=== PATIENT | female | born 1975 | race Caucasian/White ===

== ENCOUNTER → 2016-05-28 | Outpatient (CLI) | payer OTHER ==
[2014-08-05 19:30] VITALS: BP 119/85
[~2016-05-28] MED LIST: MULT1CAP15 PO; vitamin b 12; vitamin b 6
--- NOTE | 2016-05-28 17:25 | RAD ---
APPROVED REPORT Patient Location : OUT-PATIENT Indications Lower Extremity Pain : Right Lower Extremity Edema : Right Varicose Veins varicose veins on right, rle pain and swelling Deep System Deep Venous Thrombosis present : No Greater Saphenous Veins (GSV) Significant venous relux noted in the RIGHT GSV at the following levels : Distal Thigh, Superficial F emoral Junction Accessory Veins Right Anterior Accessory Vein : Present : Yes Reflux : Yes Leftt Anterior Accessory Vein : Present : Yes Reflux : No Right Posterior Accessory Vein : Present : No Reflux : No Left Posterior Accessory Vein : Present : No Reflux : No Findings By grayscale images of the bilateral saphenofemoral junctions and limited evaluation of the great sap henous vein was performed. The anterior accessory saphenous vein on the right side was also imaged. The left great saphenous vein measures 6.6 mm in greatest diameter and does not reflux. The right great saphenous vein measures proximal be 9.6 mm in greatest dimension with a reflux time o f approximately 2.7 seconds. The right anterior accessory saphenous vein also has a reflux of 2.7 se conds measuring approximately 6-8 mm. The bilateral lesser saphenous veins did not demonstrate any evidence of reflux. Multiple varicose v eins are noted in the right thigh. Critical Notification Critical Value: No <Conclusion> 1. Positive reflux study in the right greater and accessory saphenous veins.
--- NOTE | 2016-05-28 17:28 | RAD ---
APPROVED REPORT Bilateral Lower Extremity Venous Study for DVT Patient Location: OUT-PATIENT Indications Lower Extremity Pain: Right Lower Extremity Edema: Right Findings Bilateral grayscale images of the deep venous system from the common femoral vein to the below-knee v eins was performed. On grayscale images there is no evidence of thrombus from the common femoral vei n to the popliteal veins bilaterally. There is spontaneous flow noted in the below-knee veins bilate rally. No clear evidence of thrombus or DVT noted. Critical Notification Critical Value: No <Conclusion> Negative DVT study in the bilateral lower extremity deep venous structures.
== END | disposition home or self-care (01) ==
LOC: US 13:11
PROVIDERS: ATTEND Internal Medicine Cardiovascular Disease
DX: I87.2 Venous insufficiency (chronic) (peripheral) (principal); I83.91 Asymptomatic varicose veins of right lower extremity; M79.89 Other specified soft tissue disorders
CPT/HCPCS: 93970

== ENCOUNTER → 2016-07-08 | Outpatient (CLI) | payer OTHER ==
[2014-08-05 19:30] VITALS: BP 119/85
[~2016-07-08] MED LIST changes: +LIDOCAINE 1%/EPI 1:100,000 50 ML, SODIUM BICARBONATE VIAL 5 MEQ in IV NORMAL SALINE 100... SQ ONE
--- NOTE | 2016-07-08 14:01 | CARD ---
APPROVED REPORT Patient StatusOUT-PATIENT Financial Planning Advisor: Olu Slaughter Procedure(s) performed: Endovenous radiofrequency ablation of the right anterior accessory saphenous vein. INDICATION FOR PROCEDURE The indication(s) include : Symptomatic Chronic Venous Insufficiency with Varicose Veins, lower extre mity pain and edema. PROCEDURE NARRATIVE The patient was transferred to the procedure suite and the insufficient saphenous vein was mapped by ultrasound and diagrammed on the underlying skin. The depth and diameter of the vein(s) to be treate d was documented. The varicose tributary veins and suitable access sites were identified and mapped as well. The patient was then positioned supine on the procedure table. The entire limb was sterile ly prepared and the lower extremity and treatment table were sterilely draped. The RF catheter was placed on the sterile field, flushed and wiped down, prepared, and connected by a sterile cable. The patient was placed in reverse-Trendelenburg position and local anesthesia was instilled in the sk in overlying the access site. A skin incision was made overlying the identified and mapped greater s aphenous vein entry site. The vein was punctured through the incision and using ultrasound guidance and the Seldinger technique a guide wire was introduced through the needle which was then exchanged o ethan the guide wire for a 7 F sheath. The guide wire was removed and the sheath was flushed. The RF probe was placed into the vein through the sheath and positioned at a point just distal (about 0.5 to 1 cm) to the entrance point of the superficial epigastric artery using ultrasound guidance. After the RF probe position was verified by the ultrasound, tumescent anesthesia was infiltrated, und er ultrasound guidance, precisely into the perivenuus compartment along the entire length of vein fro m the entry site to the saphenofemoral junction until a "halo" of fluid was noted around the vein. The patient was then placed in Trendelenburg position. After the RF probe position was again confirm ed with ultrasound imaging, moderate external compression was applied over the RF heating element, an d RF energy was applied. The probe was withdrawn sequentially in 3 cm segments of ablation and monit ored to keep the probe temperature at 120 degrees Celsius and the generator output well below its max imum power. Treatment Segments: 14 Total Length: 33 cm. Total Ablation time: 4 minutes 40 secon ds. Repeat ultrasound of the saphenous vein was performed confirming successful treatment. The catheter and sheath were withdrawn and hemostasis established with direct pressure. After assuring hemostasis , the skin incision over the saphenous vein was closed with a bandage and an external compression pablo ssing was applied from the level of the foot to the most proximal level of the thigh.
== END | disposition home or self-care (01) ==
LOC: VNUS 11:57
PROVIDERS: ATTEND Internal Medicine Cardiovascular Disease
DX: I83.811 Varicose veins of right lower extremity with pain (principal)
CPT/HCPCS: 36475; J3490; J7030

== ENCOUNTER → 2016-07-10 | Outpatient (CLI) | payer OTHER ==
[2014-08-05 19:30] VITALS: BP 119/85
[~2016-07-10] MED LIST changes: -LIDOCAINE 1%/EPI 1:100,000 50 ML, SODIUM BICARBONATE VIAL 5 MEQ in IV NORMAL SALINE 100... SQ ONE
== END | disposition home or self-care (01) ==
LOC: US 10:33
PROVIDERS: ATTEND Internal Medicine Cardiovascular Disease
DX: Z98.890 Other specified postprocedural states (principal); M79.604 Pain in right leg
CPT/HCPCS: 93971

== ENCOUNTER → 2017-02-19 | Outpatient (CLI) | payer OTHER ==
[2016-01-04 08:10] VITALS: BP 113/76
[~2017-02-19] MED LIST changes: +ALPR0.5T PO; +MELO15TA23 PO; +OXYC-328 PO; +OXYC30TA PO; +QUET25TA5 PO
[2017-02-19 13:59] LABS: BASO # 0.1 x10^3/uL (0.0-0.2); BASO % 1 % (0-3); BILIRUBIN,URINE NEGATIVE (NEG); EOS % 1 % (0-3); GLUCOSE,URINE NEGATIVE (NEG); HEMATOCRIT 42.9 % (36.0-47.0); HEMOGLOBIN 14.6 g/dL (12.0-15.5); LYMPH # 3.6 x10^3/uL (1.0-4.8); LYMPH % 31 % (24-48); MEAN CORPUSCULAR HEMOGLOBIN 32 pg (25-35); MEAN CORPUSCULAR HGB CONC 34 g/dL (31-37); MEAN CORPUSCULAR VOLUME 94 fL (79-100); MONO % 6 % (0-9); NEUT % 62 % (31-73); NITRITE,URINE NEGATIVE (NEG); PLATELET COUNT 273 x10^3/uL (140-400); PROTEIN,URINE NEGATIVE (NEG-TRACE); RED BLOOD COUNT 4.59 x10^6/uL (3.50-5.40); RED CELL DISTRIBUTION WIDTH 13.9 % (11.5-14.5); UROBILINOGEN,URINE 0.2 mg/dL (0.2 mg/dL); WHITE BLOOD COUNT 11.7 x10^3/uL (4.0-11.0)
[2017-02-19 14:07] LABS: BACTERIA,URINE FEW /HPF (0-FEW); RBC,URINE RARE /HPF (0-2); SQUAMOUS EPITHELIAL CELL,UR FEW /LPF; WBC,URINE 0 /HPF (0-4)
--- NOTE | 2017-02-19 14:07 | RAD ---
Chest, 2 views, 02/19/2017: History: Preop evaluation for hysterectomy Comparison is made to a study from 08/05/2014. The heart size and pulmonary vascularity are normal. No pulmonary infiltrates are seen. There is no evidence of pleural fluid. Mild spurring is present in the spine. IMPRESSION: No acute cardiopulmonary abnormality is detected.
[2017-02-19 14:19] LABS: ALBUMIN 3.8 g/dL (3.4-5.0); ALBUMIN/GLOBULIN RATIO 1.1 (1.0-1.7); CALCIUM 9.7 mg/dL (8.5-10.1); CREATININE 0.8 mg/dL (0.6-1.0); GFR 78.3; POTASSIUM 3.7 mmol/L (3.5-5.1); TOTAL BILIRUBIN 0.2 mg/dL (0.2-1.0); TOTAL PROTEIN 7.3 g/dL (6.4-8.2)
== END | disposition home or self-care (01) ==
LOC: SURGPAT 12:40 → MERGE 13:00
PROVIDERS: ATTEND Obstetrics & Gynecology
DX: Z01.818 Encounter for other preprocedural examination (principal); Z87.891 Personal history of nicotine dependence
CPT/HCPCS: 36415; 71020; 80053; 81001; 85025

== ENCOUNTER → 2017-03-24 | Outpatient (CLI) | payer OTHER ==
[2017-03-06 04:05] VITALS: BP 106/73
[~2017-03-24] MED LIST changes: +IOHEXOL 240 MG/ML 50ML VIAL. PO ONE; +IOHEXOL 300 MG/ML 100ML VIAL. IV ONE; +NAPR500T4 PO; +PROAIR RESPICL90 MCG IH; +QUET300T5 PO
--- NOTE | 2017-03-24 12:03 | KCIC ---
CT abdomen and pelvis with contrast Indication: . Right-sided abdominal pain. Postop February 28. Hysterectomy.. Technique: Intravenous contrast is given. No oral contrast as per request. Comparison:None available Exposure: One or more of the following individualized dose reduction techniques were utilized for this examination: 1. Automated exposure control 2. Adjustment of the mA and/or kV according to patient size 3. Use of iterative reconstruction technique. FINDINGS: Lower thorax: Lung bases are clear. Pneumoperitoneum:No gross pneumoperitoneum. Liver: Hypodense lesion in the anterior right lobe measures 2 cm, with density characteristics compatible with a cyst, 2 Hounsfield units. Spleen: Unremarkable Pancreas: Unremarkable Adrenals:No evidence of mass. Kidneys: Low-density lesion at the lower pole the right kidney measures 19 mm diameter, compatible with a cyst, measuring 9 Hounsfield units. Gallbladder: No calcified stone Aorta: Abdominal aorta is nonaneurysmal Lymph nodes: No significant enlargement GI tract: Mild diverticulosis. No evidence of bowel obstruction. No paracolonic inflammatory change. Appendix:Visualized, appears within normal limits. Ascites: No gross ascites. Urinary bladder: Not distended or opacified, but no apparent abnormality. There is a hypodense lesion in the pelvis, just to the left of midline and just above the left urinary bladder, measures 3.9 cm long axis. This demonstrates some internal septations and is most likely a septated cyst or area of cysts. These may be of ovarian origin. Bones: No destructive process. IMPRESSION: 1. Septated 3.9 cm cystic lesion in the left pelvis, could be of ovarian origin. Recommend pelvic ultrasound for further evaluation. 2. No acute findings identified in the abdomen or pelvis. Electronically signed by: Kiran Billy MD (03/24/2017 11:59 AM) [facility]
== END | disposition home or self-care (01) ==
LOC: KCIC CT 08:41
PROVIDERS: ATTEND Obstetrics & Gynecology
DX: Z98.890 Other specified postprocedural states (principal); G89.18 Other acute postprocedural pain; I10 Essential (primary) hypertension; Z99.2 Dependence on renal dialysis; Z95.0 Presence of cardiac pacemaker; E11.9 Type 2 diabetes mellitus without complications; G40.909 Epilepsy, unspecified, not intractable, without status epilepticus; Z91.041 Radiographic dye allergy status; F17.210 Nicotine dependence, cigarettes, uncomplicated
CPT/HCPCS: 74177; Q9966; Q9967

== ENCOUNTER → 2017-04-02 | Outpatient (CLI) | payer OTHER ==
[2017-03-06 04:05] VITALS: BP 106/73
[~2017-04-02] MED LIST changes: -IOHEXOL 240 MG/ML 50ML VIAL. PO ONE; -IOHEXOL 300 MG/ML 100ML VIAL. IV ONE; -NAPR500T4 PO; -PROAIR RESPICL90 MCG IH; -QUET300T5 PO
--- NOTE | 2017-04-02 10:15 | RAD ---
Pelvic ultrasound 04/02/2017 Indication: Adnexal mass seen on prior CT scan. Comparison study: CT of the abdomen and pelvis March 24, 2017 Discussion: Ultrasound evaluation of the pelvis is performed transabdominally and transvaginally. Static images were submitted to PACS. The right ovary is nonvisualized. Patient reports history of hysterectomy and right oophorectomy The left ovary measures 4.2 x 2.8 x 2.3 cm. Multiple follicles versus small cysts are noted in left ovary, the largest measuring up to 2 cm in diameter. Vaginal cuff is a grossly unremarkable ultrasound appearance. No free fluid is seen in the pelvis. Blood flow to left ovarian parenchyma is intact. Impression: 1. Multiple follicles or small cysts in left ovary largest measuring 2 cm in diameter. Findings are compatible with the appearance on prior CT scan. 2. Status post hysterectomy and right oophorectomy
== END | disposition home or self-care (01) ==
LOC: US 08:49
PROVIDERS: ATTEND General Practice
DX: N83.202 Unspecified ovarian cyst, left side (principal); Z90.710 Acquired absence of both cervix and uterus
CPT/HCPCS: 76830; 76856

== ENCOUNTER → 2017-04-17 | Outpatient (CLI) | payer OTHER ==
[2017-03-06 04:05] VITALS: BP 106/73
[~2017-04-17] VITALS: Ht 167.6 cm; Wt 90.7 kg
[~2017-04-17] MED LIST changes: +SINCALIDE 1.81 MCG in IV NORMAL SALINE 50ML 30 ML IV ONE
--- NOTE | 2017-04-17 08:37 | RAD ---
Clinical history: Right upper quadrant pain Sonographic examination of the right upper quadrant of the abdomen was performed and multiple static images were obtained. The majority of the liver is visualized and appears mostly homogeneous. There is a 16 mm cyst in the right lobe. The liver measures 21 cm in length. The common bile duct appears normal measures 6 mm in diameter. The gallbladder appears normal. The pancreas is not well visualized due to overlying bowel gas but appears within normal limits. The right kidney appears normal measuring 12 cm in length. There is a 2.2 cm cyst in the lower pole. The visualized portions of the abdominal aorta and IVC appear normal. Impression: Negative. No evidence of gallbladder disease.
--- NOTE | 2017-04-17 12:43 | RAD ---
History: Right upper quadrant pain. 5.5 mCi technetium 99m Choletec was administered intravenously and spot views were obtained on a gamma camera for a nuclear medicine hepatobiliary scan. 1.8 mcg of CCK drip was administered over 30 minutes and a region of interest was drawn around the gallbladder and gallbladder ejection fraction was calculated. There is rapid uptake of activity from the blood pool and concentration in the liver. Activity seen in the gallbladder and small bowel. There is a rapid response of the gallbladder to CCK and gallbladder ejection fraction is 99% which is normal. Impression: Normal hepatobiliary scan. Normal gallbladder function.
== END | disposition home or self-care (01) ==
LOC: US 07:33
PROVIDERS: ATTEND Internal Medicine Gastroenterology
DX: R10.11 Right upper quadrant pain (principal); R11.2 Nausea with vomiting, unspecified; Z87.891 Personal history of nicotine dependence
CPT/HCPCS: 76705; 78226; 96374; 96375; A9537; J2805

== ENCOUNTER → 2017-06-09 | Outpatient (CLI) | payer OTHER | END | disposition home or self-care (01) | LOC: NM 07:48 | DX: R10.11 Right upper quadrant pain (principal); R11.0 Nausea | CPT/HCPCS: 78264; A9541 ==

== ENCOUNTER → 2018-10-09 | Outpatient (CLI) | payer OTHER ==
[2017-11-18 11:00] VITALS: BP 102/72
[~2018-10-09] MED LIST changes: +ALPR2TAB2 PO; +FLUO40CA9 PO; +NAPR-514 PO; -OXYC-328 PO; +OXYC1TAB22 PO; -OXYC30TA PO; +OXYC30TA3 PO; +PROAIR RESPICL90 MCG IH; +Pantoprazole PO; +QUET300T5 PO; +QUET400T4 PO; -SINCALIDE 1.81 MCG in IV NORMAL SALINE 50ML 30 ML IV ONE
[2018-10-09 09:57] LABS: BASO % 0 % (0-3); EOS # 0.1 x10^3/uL (0.0-0.7); EOS % 2 % (0-3); HEMOGLOBIN 13.9 g/dL (12.0-15.5); LYMPH # 2.1 x10^3/uL (1.0-4.8); LYMPH % 30 % (24-48); MEAN CORPUSCULAR HEMOGLOBIN 30 pg (25-35); MEAN CORPUSCULAR HGB CONC 33 g/dL (31-37); MEAN CORPUSCULAR VOLUME 91 fL (79-100); MONO # 0.7 x10^3/uL (0.0-1.1); MONO % 10 % (0-9); NEUT # 4.2 x10^3uL (1.8-7.7); NEUT % 59 % (31-73); PLATELET COUNT 213 x10^3/uL (140-400); RED BLOOD COUNT 4.62 x10^6/uL (3.50-5.40); WHITE BLOOD COUNT 7.1 x10^3/uL (4.0-11.0)
[2018-10-09 10:23] LABS: ALBUMIN 3.2 g/dL (3.4-5.0); ALBUMIN/GLOBULIN RATIO 0.9 (1.0-1.7); CREATININE 0.8 mg/dL (0.6-1.0); GFR 77.6; POTASSIUM 4.4 mmol/L (3.5-5.1); TOTAL BILIRUBIN 0.1 mg/dL (0.2-1.0); TOTAL PROTEIN 6.8 g/dL (6.4-8.2)
[2018-10-09 18:10] LABS: ESTRADIOL LEVEL 110.6 pg/mL (.); PROGESTERONE 9.9 ng/mL (.); TESTOSTERONE TOTAL 22 ng/dL (8-48)
[2018-10-10 00:07] LABS: HEMOGLOBIN A1C 5.8 % (4.8-5.6)
== END | disposition home or self-care (01) ==
LOC: LAB 09:34
PROVIDERS: ATTEND General Practice
DX: N95.1 Menopausal and female climacteric states (principal); B35.9 Dermatophytosis, unspecified; R60.9 Edema, unspecified
CPT/HCPCS: 36415; 80053; 82626; 82670; 82679; 83036; 84144; 84403; 85025

== ENCOUNTER → 2019-09-28 | Outpatient (CLI) | payer OTHER ==
[2017-11-18 11:00] VITALS: BP 102/72
--- NOTE | 2019-09-28 09:43 | CARD ---
MR#: [id number] Date of Study: 09/28/2019 Ordering Physician: PIA PROCTOR, Referring Physician: PIA PROCTOR, Tech: Majo Vail APPROVED REPORT EXAM: Two-dimensional and M-mode echocardiogram with Doppler and color Doppler. Other Information Quality : AverageHR: 75bpm Technically limited study due to body habitus. INDICATION Chest Pain RISK FACTORS Hypertension Smoking 2D DIMENSIONS RVDd4.0 (2.9-3.5cm)Left Atrium(2D)4.0 (1.6-4.0cm) IVSd1.1 (0.7-1.1cm)Aortic Root(2D)3.1 (2.0-3.7cm) LVDd4.7 (3.9-5.9cm)LVOT Diameter2.1 (1.8-2.4cm) PWd1.0 (0.7-1.1cm)LVDs3.0 (2.5-4.0cm) FS (%) 37.5 %SV70.8 ml LVEF(%)67.5 (>50%) Aortic Valve AoV Peak Fco.173.6cm/sAoV VTI29.4cm AO Peak GR.12.0mmHgLVOT Peak Fco.112.9cm/s LVOT VTI 27.79cmAO Mean GR.6mmHg TANISHA (VMAX)1.85it2IIK (VTI)3.26cm2 Mitral Valve MV E Eafiabrj80.1cm/sMV DECEL AZTX369lb MV A Aohddeze29.7cm/sMV E Mean Gr.1mmHg MV WTH33weI/A Ratio1.3 MVA (PHT)3.29cm2 TDI E/Lateral E'9.2E/Medial E'7.3 Pulmonary Valve PV Peak Ubbbbmtf481.1cm/sPV Peak Grad.5mmHg Tricuspid Valve TR P. Vxzpdlwd177pu/sRAP XOQCAJAW3syLy TR Peak Gr.52tzGhFSTR14kmFw Pulmonary Vein S1 Lgchpyom14.2cm/sD2 Kgeyfsuh04.9cm/s PVa [id number] LEFT VENTRICLE The left ventricle is normal size. There is borderline concentric left ventricular hypertrophy. The l eft ventricular systolic function is normal and the ejection fraction is within normal range. The Eje ction Fraction is 55-60%. There is normal LV segmental wall motion. Transmitral Doppler flow pattern is Grade II-pseudonormal filling dynamics. RIGHT VENTRICLE The right ventricle is normal size. There is normal right ventricular wall thickness. The right ventr icular systolic function is normal. ATRIA The left atrium size is normal. The right atrium size is normal. The interatrial septum is intact wit h no evidence for an atrial septal defect or patent foramen ovale as noted on 2-D or Doppler imaging. AORTIC VALVE The aortic valve is normal in structure and function. Doppler and Color Flow revealed no significant aortic regurgitation. There is no significant aortic valvular stenosis. MITRAL VALVE The mitral valve is normal in structure and function. There is no evidence of mitral valve prolapse. There is no mitral valve stenosis. Doppler and Color-flow revealed trace mitral regurgitation. TRICUSPID VALVE The tricuspid valve is normal in structure and function. Doppler and Color Flow revealed trace tricus pid regurgitation with an estimated PAP of 31 mmHg. There is no tricuspid valve stenosis. PULMONIC VALVE The pulmonic valve is not well visualized. Doppler and Color Flow revealed trace pulmonic valvular re gurgitation. There is no pulmonic valvular stenosis. GREAT VESSELS The aortic root is normal in size. The ascending aorta is normal in size. The IVC is normal in size a nd collapses >50% with inspiration. PERICARDIAL EFFUSION There is no evidence of significant pericardial effusion. Critical Notification Critical Value: No <Conclusion> The left ventricular systolic function is normal and the ejection fraction is within normal range. Th e Ejection Fraction is 55-60%. There is normal LV segmental wall motion. Signed by : Wofl Haas, Electronically Approved : 09/28/2019 09:42:52
== END | disposition home or self-care (01) ==
LOC: ECHO 10:00
PROVIDERS: ATTEND Internal Medicine Cardiovascular Disease
DX: I51.7 Cardiomegaly (principal)
CPT/HCPCS: 93306

== ENCOUNTER → 2020-02-02 | Outpatient (CLI) | payer OTHER ==
[2017-11-18 11:00] VITALS: BP 102/72
--- NOTE | 2020-02-02 13:12 | RAD ---
AP and Lateral Views of the Chest 02/02/2020 12:00 AM Indication: Reason: DYSPNEA / Spl. Instructions: / History: Comparison: Chest radiograph February 19, 2017 Findings: There is no focal consolidation or infiltrate identified. The cardiomediastinal silhouette is within normal limits. There is no evidence of pneumothorax or pleural effusion. No acute osseous abnormalities are identified. Impression: No evidence of acute cardiopulmonary process. Electronically signed by: Geoffrey Larsen MD (02/02/2020 1:09 PM) [id number]
== END | disposition home or self-care (01) ==
LOC: RAD 10:41
PROVIDERS: ATTEND Internal Medicine Critical Care Medicine
DX: R06.00 Dyspnea, unspecified (principal)
CPT/HCPCS: 71046

== ENCOUNTER → 2020-02-14 | Outpatient (CLI) | payer OTHER ==
[2017-11-18 11:00] VITALS: BP 102/72
--- NOTE | 2020-02-14 10:19 | RAD ---
EXAM: CT CHEST WITHOUT CONTRAST HISTORY: Interstitial lung disease COMPARISON: Chest radiograph 02/02/2020 TECHNIQUE: Helical CT of the chest performed without contrast. Coronal and sagittal reformats were obtained. One or more of the following individualized dose reduction techniques were utilized for this examination: 1. Automated exposure control 2. Adjustment of the mA and/or kV according to patient size 3. Use of iterative reconstruction technique. FINDINGS: Thyroid gland and thoracic inlet: Normal. Heart and great vessels: The heart is normal in size. No pericardial effusion. Thoracic aorta is normal. Mediastinum and cherie: No lymphadenopathy. Lungs and pleura: There is 3 mm pulmonary nodule in the right lower lobe (image 30, series 3). A 4 mm nodular groundglass opacity in the right upper lobe (image 20, series 3). The lungs are otherwise clear. No emphysematous or interstitial changes. No bronchiectasis or air trapping. No pleural effusion. Airways are normal. Chest wall and axillae: Normal. Upper abdomen: Cholecystectomy. Hepatic steatosis. Bones: No acute osseous abnormality. IMPRESSION: 1. No evidence of interstitial lung disease. 2. 3 mm pulmonary nodule in the right lower lobe and 4 mm nodular groundglass opacity in the right upper lobe. Optional twelve-month follow-up CT could be obtained in a high risk patient. 3. Cholecystectomy. Hepatic steatosis. Electronically signed by: Marta Borden MD (02/14/2020 10:16 AM) [id number]
== END | disposition home or self-care (01) ==
LOC: CT 08:34
PROVIDERS: ATTEND Internal Medicine Critical Care Medicine
DX: R91.1 Solitary pulmonary nodule (principal); K76.0 Fatty (change of) liver, not elsewhere classified; Z90.49 Acquired absence of other specified parts of digestive tract
CPT/HCPCS: 71250

== ENCOUNTER → 2020-05-31 | Outpatient (CLI) | payer OTHER ==
[~2020-05-31] MED LIST changes: +ALPR2TAB5 PO; +ASCO500C PO; +ASPI-630 PO; +ASPI325T11 PO; +BUPR1FIL5 SL; +HYDR-2759 PO; +UMEC1DIS IH
--- NOTE | 2020-05-31 15:59 | KCIC ---
MRI left knee without contrast dated 05/31/2020. No comparison available. Clinical data indication: Left knee pain. TECHNIQUE: Routine multiplanar multisequence MR imaging of left knee was performed. No contrast administered. One or more of the following individualized dose reduction techniques were utilized for this examinat ion: 1. Automated exposure control 2. Adjustment of the mA and/or kV according to patient size 3. Use of iterative reconstruction technique. FINDINGS: There is moderate tricompartmental hypertrophic change with small marginal osteophytes. Thinning and surface irregularity of the articular cartilage throughout. Broad zones of full-thickness cartilage l oss at the weightbearing surfaces of medial femoral condyle and medial tibial plateau. There is also full-thickness cartilage loss at the patellar apex and lateral facet There is a moderate size joint effusion. Possible small loose body or debris at the anterior medial j oint space. No significant popliteal cyst. There is mild edema within the popliteus muscle and proxim al soleus muscle. Anterior cruciate and posterior cruciate ligaments intact. Medial and lateral collateral complexes in tact. Iliotibial band, popliteus tendon and pes anserine complex within normal limits. Quadriceps and patellar tendon are intact. No abnormality of the medial or lateral retinaculum. There is a focal radial tear at the free edge of the lateral meniscal body best seen on coronal image 12. The anterior horn and posterior horn are intact. There is also some irregular linear signal at the posterior horn/body of medial meniscus with linear extension to the tibial and femoral articular surfaces. Anterior horn and posterior horn are otherwis e intact. IMPRESSION: 1. Small complex tear posterior horn/body of medial meniscus. 2. There is also a small focal free edge radial tear at the lateral meniscal body. 3. Moderate tricompartmental degenerative arthrosis and chondromalacia. There is full-thickness carti tracie loss at the medial and anterior compartments. 4. Moderate size joint effusion with small loose bodies or debris at the anterior medial joint space. 5. Nonspecific edema within the popliteus muscle and proximal soleus muscle. Electronically signed by: Kiran Mccormick MD (05/31/2020 3:56 PM) [id number]
== END ==
LOC: KCIC MRI 12:16 → MERGE 12:16
PROVIDERS: ATTEND Orthopaedic Surgery
DX: S83.232A Complex tear of medial meniscus, current injury, left knee, initial encounter (principal); S83.282A Other tear of lateral meniscus, current injury, left knee, initial encounter; M17.12 Unilateral primary osteoarthritis, left knee; M94.262 Chondromalacia, left knee; M25.462 Effusion, left knee; M25.762 Osteophyte, left knee; X58.XXXA Exposure to other specified factors, initial encounter; Y93.89 Activity, other specified; Y92.89 Other specified places as the place of occurrence of the external cause; Y99.8 Other external cause status
CPT/HCPCS: 73721

== ENCOUNTER → 2020-07-04 | Outpatient (CLI) | payer OTHER ==
[2017-11-18 11:00] VITALS: BP 102/72
[~2020-07-04] MED LIST changes: -ASPI325T11 PO; -HYDR-2759 PO
== END ==
LOC: LAB 10:07 → MERGE 10:31
PROVIDERS: ATTEND Orthopaedic Surgery
DX: Z01.812 Encounter for preprocedural laboratory examination (principal); S83.232A Complex tear of medial meniscus, current injury, left knee, initial encounter; S83.282A Other tear of lateral meniscus, current injury, left knee, initial encounter; Z20.822 Contact with and (suspected) exposure to COVID-19; X58.XXXA Exposure to other specified factors, initial encounter; Y93.89 Activity, other specified; Y92.89 Other specified places as the place of occurrence of the external cause; Y99.8 Other external cause status
CPT/HCPCS: U0003

== ENCOUNTER 2020-07-07 06:23 | Day surgery (SDC) | payer OTHER ==
[~2020-07-07] VITALS: Ht 172.7 cm; Wt 125.2 kg
[~2020-07-07 06:23] MED LIST changes: +HYDROmorphone 2 MG/ML VIAL IVP PRN; +IV RINGERS,LACTATED 1000ML 1,000 ML IV SCH; +PROCHLORPERAZINE 10 MG/2 ML VIAL. IVP PRN; +ceFAZolin SODIUM 3 GM in IV DEXTROSE 5% 100ML 100 ML IV PRN; +fentaNYL PF VIAL 100 MCG/2 ML VIAL IVP PRN
[2020-07-07] MEDS ORDERED: EPINEPHrine VIAL 30 MG/30 ML VIAL ONE (06:48)
[2020-07-07] MEDS ORDERED: BUPIVACAINE-EPI 0.25% 30 ML VIAL KIT. ONE ×2 (06:48→07:16)
--- NOTE | 2020-07-07 07:20 | PDOC1 ---
History and Physical Date of Admission Date of Admission DATE: 07/07/20 TIME: 07:10 Identification/Chief Complaint Chief Complaint Left knee pain Source Source: Chart review, Patient History of Present Illness History of Present Illness 45-year-old with left knee pain that started about 3 months ago without injury. Her pain has progressed since then and is causing daily symptoms and limping. She has knee joint swelling and mechanical symptoms and giving way. MRI shows medial and lateral meniscus tears, but also shows some areas of full-thickness cartilage loss. She tried a knee brace although this was too uncomfortable for her. She has a family history of osteoarthritis. She has also gained about 100 lbs recently and she believes this is related to her menopause. She mentioned that her father, Pk Sinclair, was a famous Brayden impersonator in film, television and had a [employer] show. Past Medical History Past Medical History Back pain, has seen Dr. Flor and Dr. Stevens. Cellulitis. Venous insufficency, s/p radiofrequency catheter ablation of the right greater saphenous vein. Severe obesity per BMI calculation. Depression/anxiety. Varicose Veins. . HTN. PTSD per pt. Past Surgical History Past Surgical History 2000 D&C section Hysterectomy, still has one ovary cholecystectomy Vein stripping right leg [facility] Bilateral elbows and wrists D&C HYST Dr Munoz [facility] 02/2017 Lap cholecystectomy 04/30/17 Past Surgical History: Cholecystectomy, , Hysterectomy Family History Family History Mother: alive 80 yrs, possible fibromyalgia Father: unknown, CABG, diagnosed with Diabetes, Heart Disease Brother: CABG, Heart Disease Sister: 54 yrs, Arthritis Asthma Cancer Family History: Coronary Artery Disease, Diabetes, Heart Disease, Hypertension Social History Smoke: <1 pack per day ALCOHOL: rare Drugs: Cocaine, Other (normally on suboxone, but held perioperatively) Current Medications Current Medications Current Medications Fentanyl Citrate (Fentanyl 2ml Vial) 25 mcg PRN Q5MIN PRN IVP MILD PAIN 1-3; S tart 07/07/20 at 06:00; Stop 07/08/20 at 05:59 Fentanyl Citrate (Fentanyl 2ml Vial) 50 mcg PRN Q5MIN PRN IVP MODERATE PAIN 4- 6; Start 07/07/20 at 06:00; Stop 07/08/20 at 05:59 Morphine Sulfate (Morphine Sulfate) 1 mg PRN Q10MIN PRN IVP SEVERE PAIN 7-10; Start 07/07/20 at 06:00; Stop 07/08/20 at 05:59 Ringer's Solution 1,000 ml @ 30 mls/hr Q24H IV Last administered on 07/07/20at 06:58; Start 07/07/20 at 06:00; Stop 07/07/20 at 17:59 Hydromorphone HCl (Dilaudid) 0.5 mg PRN Q10MIN PRN IVP SEVERE PAIN 7-10, 2nd CHOICE; Start 07/07/20 at 06:00; Stop 07/08/20 at 05:59 Prochlorperazine Edisylate (Compazine) 5 mg PACU PRN PRN IVP NAUSEA, MRX1; Start 07/07/20 at 06:00; Stop 07/08/20 at 05:59 Cefazolin Sodium 3 gm/Dextrose 100 ml @ 200 mls/hr 1X PREOP PRN IV PRIOR TO PROCEDURE; Start 07/07/20 at 06:00; Stop 07/07/20 at 15:00 Epinephrine HCl (Adrenalin) 30 mg STK-MED ONCE .ROUTE ; Start 07/07/20 at 06:48; Stop 07/07/20 at 06:48; Status DC Bupivacaine HCl/ Epinephrine Bitart (Sensorcain-Epi 0.25% Kit) 30 ml STK-MED ONCE .ROUTE ; Start 07/07/20 at 06:48; Stop 07/07/20 at 06:48; Status DC Active Scripts Active Reported Suboxone 8 Mg-2 Mg Sl Film (Buprenorphine Hcl/Naloxone Hcl) 1 Each Film 1 Each SL TID instructed by to stop 2 days prior to surgery and Dr Anne's office will phone in pain med to use instead. Aspirin 81 Mg Tab.chew 81 Mg PO DAILY Vitamin C (Ascorbic Acid) 500 Mg Capsule.er 250 Mg PO DAILY Anoro Ellipta 62.5-25 Mcg Inh (Umeclidinium Brm/Vilanterol Tr) 1 Each Disk.w.dev 1 Each IH DAILY Alprazolam 2 Mg Tablet 2 Mg PO HS PRN Naproxen 500 Mg Tablet 500 Mg PO BID Seroquel (Quetiapine Fumarate) 400 Mg Tablet 400 Mg PO HS Prozac (Fluoxetine Hcl) 40 Mg Capsule 1 Cap PO DAILY Proair Respiclick (Albuterol Sulfate) 90 Mcg Aer.pow.ba 1 Puff IH PRN DAILY PRN Allergies Allergies: Coded Allergies: ibuprofen (Unverified Allergy, Severe, Swelling of hands/throat, 04/30/17) 800mg caused reaction tramadol (Verified Allergy, Intermediate, Palpitations, 04/30/17) DIZZINESS, CHEST PAIN Physical Exam General: Alert, Cooperative HEENT: Atraumatic Lungs: Normal air movement Heart: RRR Abdomen: Soft Extremities: Other (LEFT knee shows an antalgic with normal alignment, no masses, but small effusion. There is tenderness at the medial and lateral joint lines and a positive medial Alaina's test. Negative lateral Alaina's test. Range of motion is 0-135 degrees. There is no appreciable patellofemoral crepitus (due to effusion). Alaina's test is positive. There is medial joint line pain with deep flexion and especially with rotation of the tibia. The knee is stable to varus and valgus stress without subluxation or laxity. The ACL feels intact on Ulices testing. Muscle strength is normal (5/5) for quadriceps and hamstrings, and muscle tone is normal. The skin is normal with no scars, rashes, lesions or ulcers. Light touch sensation is intact. No edema and no varicosities. Dorsalis pedis pulse is intact and capillary refill is normal.) Neuro: Normal speech, Sensation intact Psych/Mental Status: Mental status NL, Mood NL Vitals Vitals Vital Signs Date Time Temp Pulse Resp B/P (MAP) Pulse Ox O2 Delivery O2 Flow Rate FiO2 07/07/20 06:52 98.1 82 20 91 98.1 07/07/20 06:42 118/74 Room Air Images Images MRI report reviewed and images independently reviewed. For example series 6 image 16 shows the posterior horn medial meniscus tear and a large knee effusion. Weightbearing x-rays of both knees from 05/25/2020 were also reviewed. There is medial joint space narrowing but it is not [id number], there is minimal if any malalignment, and only very small osteophytes, with doubtful sclerosis. [facility] [address] [place] [address] IMAGING REPORT Signed PATIENT: BRANDON COFFMAN ACCOUNT: [id number] : 1975 LOCATION: [facility] AGE: 45 SEX: F EXAM STATUS: REG CLI ORD. PHYSICIAN: ROSIBEL ANNE MD REASON: BILAT KNEE PAIN, LEFT WORSE THAN RIGHT PROCEDURE: KNEE STANDING BILAT AP XR KNEE_AP BILAT STANDING, XR KNEE 1-2 VIEWS DATE: 05/25/2020 8:29 AM INDICATION: BILAT KNEE PAIN, LEFT WORSE THAN RIGHT / Spl. Instructions: / History: COMPARISON: None. FINDINGS: Right: There is no evidence of acute fracture or dislocation. Moderate medial compartment degenerative changes, mild lateral and patellofemoral compartment. There is no joint effusion. Left: There is no evidence of acute fracture or dislocation. Moderate to severe medial compartment degenerative changes, mild lateral and patellofemoral compartment. There is no joint effusion. IMPRESSION: Bilateral tricompartmental degenerative changes, worst on the left with moderate to severe narrowing of the medial compartment. Electronically signed by: Semaj Adamson MD (05/25/2020 9:50 AM) [id number] DICTATED and SIGNED BY: SEMAJ ADAMSON MD DATE: 05/25/[address] [address] IMAGING REPORT Signed PATIENT: BRANDON COFFMAN ACCOUNT: [id number] : 1975 LOCATION: [facility] MRI AGE: 45 SEX: F EXAM STATUS: REG CLI ORD. PHYSICIAN: ROSIBEL ANNE MD REASON: LEFT KNEE PAIN PROCEDURE: LOWER EXT JOINT WO LT MRI left knee without contrast dated 05/31/2020. No comparison available. Clinical data indication: Left knee pain. TECHNIQUE: Routine multiplanar multisequence MR imaging of left knee was performed. No contrast administered. One or more of the following individualized dose reduction techniques were utilized for this examination: 1. Automated exposure control 2. Adjustment of the mA and/or kV according to patient size 3. Use of iterative reconstruction technique. FINDINGS: There is moderate tricompartmental hypertrophic change with small marginal osteophytes. Thinning and surface irregularity of the articular cartilage throughout. Broad zones of full-thickness cartilage loss at the weightbearing surfaces of medial femoral condyle and medial tibial plateau. There is also full-thickness cartilage loss at the patellar apex and lateral facet There is a moderate size joint effusion. Possible small loose body or debris at the anterior medial joint space. No significant popliteal cyst. There is mild edema within the popliteus muscle and proximal soleus muscle. Anterior cruciate and posterior cruciate ligaments intact. Medial and lateral collateral complexes intact. Iliotibial band, popliteus tendon and pes anserine complex within normal limits. Quadriceps and patellar tendon are intact. No abnormality of the medial or lateral retinaculum. There is a focal radial tear at the free edge of the lateral meniscal body best seen on coronal image 12. The anterior horn and posterior horn are intact. There is also some irregular linear signal at the posterior horn/body of medial meniscus with linear extension to the tibial and femoral articular surfaces. Anterior horn and posterior horn are otherwise intact. IMPRESSION: 1. Small complex tear posterior horn/body of medial meniscus. 2. There is also a small focal free edge radial tear at the lateral meniscal body. 3. Moderate tricompartmental degenerative arthrosis and chondromalacia. There is full-thickness cartilage loss at the medial and anterior compartments. 4. Moderate size joint effusion with small loose bodies or debris at the anterior medial joint space. 5. Nonspecific edema within the popliteus muscle and proximal soleus muscle. Electronically signed by: Kiran Mccormick MD (05/31/2020 3:56 PM) [id number] DICTATED and SIGNED BY: KIRAN MCCORMICK MD DATE: 05/31/20 1557 VTE Prophylaxis Ordered VTE Prophylaxis Devices: Yes VTE Pharmacological Prophylaxi: Yes Assessment/Plan Assessment/Plan We discussed the MRI results. She does have a complex medial meniscus tear, and a lateral meniscus free edge radial tear as well as large effusion and possible debris within the joint. There is definitely more cartilage loss then I would like, and I discussed with her that this will affect her long-term prognosis. There is much on the MRI that can be taken care of arthroscopically, but the articular cartilage loss cannot be cured, and she may ultimately want a knee replacement surgery hopefully 5 to 10 years from now. If this were my knee and I was 45 years old I would want the arthroscopic meniscectomy. A total knee replacement in a 45-year-old with these minimal x-ray changes would be considered extremely aggressive. We discussed potential risks of arthroscopic surgery, including risks of bleeding, infection, progressive arthritis, blood clots, or other potential surgical or anesthetic complications. All of her questions were answered and she desires to proceed with arthroscopic meniscectomy. She is normally on Suboxone, and we will interact with her provider for that, with plans to hold the Suboxone for 2 days preoperatively and then postoperatively while she is on postoperative narcotic pain medicines, and then transition back to Suboxone a few weeks after surgery. Justifications for Admission Other Justification ROSIBEL ANNE MD Jul 07, 2020 07:19
[2020-07-07] MEDS ORDERED: fentaNYL PF VIAL 100 MCG/2 ML VIAL ONE ×3 (07:28→09:36)
[2020-07-07] MEDS ORDERED: PROPOFOL 10 MG/ML (20ML) VIAL. IV ONE (07:28)
[2020-07-07] MEDS ORDERED: LIDOCAINE 2% PF 5 ML VIAL. ONE (07:28)
[2020-07-07] MEDS ORDERED: MIDAZOLAM HCL/PF 2 MG/2 ML VIAL. ONE (07:29)
[2020-07-07] MEDS ORDERED: SEVOFLURANE 61 TO 120 MINUTES. IH ONE (08:33)
[2020-07-07] MEDS ORDERED: DEXAMETHASONE SOD PHOS 4 MG/ML VIAL ONE (08:33)
[2020-07-07] MEDS ORDERED: ONDANSETRON PF 4 MG/2 ML VIAL. ONE (08:33)
--- NOTE | 2020-07-07 08:45 | PDOC4 ---
Operative Note Operative Note Date of Procedure: July 07, 2020 Preoperative Diagnosis: left knee medial and lateral meniscus tears Postoperative Diagnosis: * complex tear of medial meniscus, current injury, left knee, initial encounter S83.232A * complex tear of lateral meniscus, current injury, left knee, initial encounter S83.272A Procedures Performed: left knee arthroscopy, surgical, with meniscectomy, medial AND lateral, including meniscal shaving, including debridement/shaving of articular cartilage (chondroplasty) CPT 05263 Surgeon: Rosibel Anne MD Production Line Technician: NIESHA Maier Anesthesia: General Estimated Blood Loss: 5 mL Specimens: none Drains: none Complications: none Tourniquet time: 27 minutes at 350 mm Hg Indications for Procedure: The patient is a 45-year-old with left knee pain, unrelieved with nonoperative treatment. Exam and MRI are consistent with a meniscus tear. We talked about the risks and benefits of proceeding with an arthroscopic procedure. We talked about potential risks of ongoing pain, progressive arthritis, bleeding, infection, blood clots, or other potential surgical or anesthetic complications. All of the patient's questions about surgery were answered and they desired to proceed. Written consent was obtained. Description of Operation: The patient was identified in the preoperative holding area. The correct left knee was marked by me. The patient was taken to the operating room, where a general anesthetic was used. Preoperative antibiotics were given intravenously. A time-out procedure was performed. A tourniquet was placed on the upper thigh. Local anesthetic 20 mL of 0.25% bupivacaine was injected using sterile t echnique into the knee joint. The limb was prepared circumferentially with ChloraPrep solution and sterile waterproof arthroscopy drapes were applied. The limb was exsanguinated with an Esmarch bandage and the tourniquet was inflated. Lateral and medial arthroscopy portals were established. The medial meniscus showed a complex unrepairable tear with unstable flaps. A meniscectomy was performed with basket forceps and the motorized shaver back to a smooth stable base, and the resection tapered into the middle one-third of the meniscus. The primary tear pattern was a radial root tear which is the most painful tear pattern in my experience. This entailed removing essentially the entire posterior one third of the meniscus, and then tapering the resection into the middle one third of the meniscus. The medial tibiofemoral joint showed chondromalacia Outerbridge grade III and IV, and a shaving chondroplasty was performed removing unstable fragments of cartilage with the motorized shaver. There were some small areas of slightly exposed bone on the femur with no eburnated bone and no [id number] contact. The tibia did have some chondro malacia but was relatively preserved. The intercondylar notch was free of loose bodies, and the ACL was intact. The lateral tibiofemoral joint showed complex tear of the internal surface, fairly small. A partial meniscectomy was performed with basket forceps and the motorized shaver. The lateral articular surfaces showed chondromalacia Outerbridge grade III, and a shaving chondroplasty was performed removing unstable fragments of cartilage with the shaver. The patellofemoral joint showed chondromalacia Outerbridge grade III, and a shaving chondroplasty was performed removing unstable fragments of cartilage with the shaver. The suprapatellar pouch, medial and lateral gutters were free of loose bodies. Copious irrigation was used to drain all meniscal and chondral fragments, and the knee was drained of fluid. The portals were closed with #3-0 Prolene interrupted sutures. Additional local anesthetic, 30 mL of 0.25% bupivacaine with epinephrine was injected. A bulky sterile dressing was applied and the tourniquet was released. Needle and sponge counts were correct and there were no apparent complications. ROSIBEL ANNE MD Jul 07, 2020 08:45
[2020-07-07] MEDS: fentaNYL PF VIAL 100 MCG/2 ML VIAL IVP PRN ×3 (09:00→09:38)
[2020-07-07] MEDS ORDERED: MORPHINE SULFATE 2 MG/ML VIAL. ONE (09:17)
[2020-07-07] MEDS: MORPHINE SULFATE 2 MG/ML VIAL. IVP PRN ×2 (09:20→09:29)
[2020-07-07] MEDS ORDERED: HYDR-2759 PO (09:25)
[2020-07-07] MEDS ORDERED: ASPI325T11 PO (09:26)
[2020-07-07] MEDS ORDERED: HYDROcodone/APAP 5/325MG 1 TAB TABLET PO ONE ×2 (09:45)
[2020-07-07 09:50] VITALS: BP 129/77
== END 2020-07-07 10:20 | disposition home or self-care (01) ==
LOC: SURG 06:23 → MERGE 08:45 → SURG 10:20
PROVIDERS: ATTEND Orthopaedic Surgery
DX: S83.232A Complex tear of medial meniscus, current injury, left knee, initial encounter (principal); S83.272A Complex tear of lateral meniscus, current injury, left knee, initial encounter; E78.00 Pure hypercholesterolemia, unspecified; I10 Essential (primary) hypertension; E66.9 Obesity, unspecified; K21.9 Gastro-esophageal reflux disease without esophagitis; M19.90 Unspecified osteoarthritis, unspecified site; F32.9 Major depressive disorder, single episode, unspecified; F41.9 Anxiety disorder, unspecified; F17.210 Nicotine dependence, cigarettes, uncomplicated; Z90.49 Acquired absence of other specified parts of digestive tract; Z90.710 Acquired absence of both cervix and uterus; Z98.890 Other specified postprocedural states; Z79.899 Other long term (current) drug therapy; Z79.82 Long term (current) use of aspirin; Z82.49 Family history of ischemic heart disease and other diseases of the circulatory system; Z83.3 Family history of diabetes mellitus; Z88.8 Allergy status to other drugs, medicaments and biological substances; X58.XXXA Exposure to other specified factors, initial encounter; Y93.89 Activity, other specified; Y92.89 Other specified places as the place of occurrence of the external cause; Y99.8 Other external cause status
CPT/HCPCS: 29880; J0171; J1100; J2250; J2270; J2405; J2704; J3010; A4223

== ENCOUNTER → 2020-10-31 | Outpatient (CLI) | payer OTHER ==
[~2020-10-31] MED LIST changes: +ASPI325T11 PO; +HYDR-2759 PO; -HYDROmorphone 2 MG/ML VIAL IVP PRN; -IV RINGERS,LACTATED 1000ML 1,000 ML IV SCH; -PROCHLORPERAZINE 10 MG/2 ML VIAL. IVP PRN; -ceFAZolin SODIUM 3 GM in IV DEXTROSE 5% 100ML 100 ML IV PRN; -fentaNYL PF VIAL 100 MCG/2 ML VIAL IVP PRN
--- NOTE | 2020-10-31 13:43 | KCIC ---
Exam Date: 10/31/2020 8:00 AM MRI RIGHT LOWER EXTREMITY JOINT WITHOUT Indication: Reason: RIGHT KNEE PAIN / Spl. Instructions: / History: Progressing right knee pain in r ecent weeks.. TECHNIQUE: Routine multiplanar MR imaging of the knee was performed without contrast. FINDINGS: The body of the medial meniscus is extruded and demonstrates degenerative signal, but without discret e meniscal tear. There is blunting of the free margin of the body of the lateral meniscus consistent with a small radi al tear. The anterior cruciate ligament, posterior cruciate ligament, medial collateral ligament, and lateral collateral ligament complex are intact. Patellofemoral extensor mechanism and popliteus tendon are w ithin normal limits. There is mild to moderate chondral thinning in the patellofemoral compartment with small focal full-t hickness chondral defects and mild subchondral degenerative marrow signal. There is moderate to sever e diffuse chondral thinning in the medial compartment with full-thickness chondral loss at the periph ana of the joint, and mild subchondral degenerative marrow signal. Partial thickness chondral defects are seen in the lateral compartment without full-thickness chondral loss. Small tricompartment osteophytes are noted. Bone marrow demonstrates benign signal on all sequences. No acute fracture is seen. There is a moderate to large joint effusion. There is no popliteal cyst. IMPRESSION: There is a small radial tear in the lateral meniscus. Extrusion of the body of the medial meniscus with degenerative signal, but without discrete meniscal tear. Small fluid adjacent to the medial meniscal body is felt to represent joint fluid, rather than a parameniscal cyst. Full-thickness chondral loss identified in the medial compartment, more so than the patellofemoral co mpartment. Moderate to large joint effusion noted. Electronically signed by: Michael Jensen MD (10/31/2020 12:29 PM) [id number]
== END ==
LOC: KCIC MRI 07:50
PROVIDERS: ATTEND Orthopaedic Surgery
DX: S83.281A Other tear of lateral meniscus, current injury, right knee, initial encounter (principal); M25.761 Osteophyte, right knee; M25.461 Effusion, right knee; X58.XXXA Exposure to other specified factors, initial encounter; Y93.89 Activity, other specified; Y92.89 Other specified places as the place of occurrence of the external cause; Y99.8 Other external cause status
CPT/HCPCS: 73721

== ENCOUNTER → 2020-12-01 | Outpatient (CLI) | payer OTHER ==
[~2020-12-01] MED LIST changes: +HYDR-2763 PO
== END ==
LOC: LAB 10:05
PROVIDERS: ATTEND Orthopaedic Surgery
DX: S83.281A Other tear of lateral meniscus, current injury, right knee, initial encounter (principal); Z01.812 Encounter for preprocedural laboratory examination; Z20.822 Contact with and (suspected) exposure to COVID-19; X58.XXXA Exposure to other specified factors, initial encounter; Y93.89 Activity, other specified; Y92.89 Other specified places as the place of occurrence of the external cause; Y99.8 Other external cause status
CPT/HCPCS: U0003; U0005

== ENCOUNTER 2020-12-05 06:45 | Day surgery (SDC) | payer OTHER ==
[~2020-12-05] VITALS: Ht 172.7 cm; Wt 129.0 kg
[~2020-12-05 06:45] MED LIST changes: -HYDR-2763 PO
[2020-12-05] MEDS ORDERED: ONDANSETRON PF 4 MG/2 ML VIAL. ONE (07:02)
[2020-12-05] MEDS ORDERED: PROPOFOL 10 MG/ML (20ML) VIAL. IV ONE (07:02)
[2020-12-05] MEDS ORDERED: DEXAMETHASONE SOD PHOS 4 MG/ML VIAL ONE (07:02)
[2020-12-05] MEDS ORDERED: BUPIVACAINE-EPI 0.5%-1:200000 MPF 30 ML VIAL. ONE (07:27)
[2020-12-05] MEDS ORDERED: IV RINGERS,LACTATED 1000ML 1,000 ML IV SCH ×2 (07:30→08:45)
[2020-12-05] MEDS ORDERED: fentaNYL PF VIAL 100 MCG/2 ML VIAL ONE ×2 (08:07→08:45)
[2020-12-05] MEDS ORDERED: HYDR-2763 PO (08:11)
--- NOTE | 2020-12-05 08:13 | DISCH ---
DISCHARGE INSTRUCTIONS Condition on Discharge Condition on Discharge: Stable Activity After Discharge Activity Instructions for Disc: Avoid exertion, Progressive ambulation Driving Instructions after Dis: Do not drive Weight Bearing Status after Di: As tolerated Diet after Discharge Diet after Discharge: [place], GI Soft, Regular Diet Texture: Regular Wound Incision Care Wound/Incision Care: Ice to area for comfort, Change dressing (Remove dressing in 2 days may then shower no soaking until sutures removed) Contacting the DRDevon after DC Call your doctor for: Concerns you may have Follow-Up Follow up with: Dr. Moss or Bj 1 week Treatment/Equipment after DC Adaptive Equipment Issued: None JOSEPH MOSS MD Dec 05, 2020 08:13
[2020-12-05] MEDS ORDERED: HYDROmorphone 2 MG/ML VIAL IVP PRN (08:45)
[2020-12-05] MEDS ORDERED: PROCHLORPERAZINE 10 MG/2 ML VIAL. IVP PRN (08:45)
[2020-12-05] MEDS ORDERED: fentaNYL PF VIAL 100 MCG/2 ML VIAL IVP PRN (08:45)
[2020-12-05] MEDS: fentaNYL PF VIAL 100 MCG/2 ML VIAL IVP PRN ×2 (08:45→08:52)
[2020-12-05] MEDS ORDERED: MORPHINE SULFATE 2 MG/ML INJ. ONE (08:53)
[2020-12-05] MEDS ORDERED: PROCHLORPERAZINE 10 MG/2 ML VIAL. ONE (08:54)
[2020-12-05] MEDS: MORPHINE SULFATE 2 MG/ML INJ. IVP PRN ×2 (08:56→09:06)
--- NOTE | 2020-12-05 09:03 | PDOC4 ---
Operative Note Operative Note Date of surgery: 12/05/2020 Preoperative diagnosis: Medial meniscus tear right knee Postoperative diagnosis: Same with posterior horn medial meniscus tear and free edge fraying lateral meniscus and chondral flap tear medial femoral condyle and chondromalacia patella Operative procedure: Right knee arthroscopy partial medial and lateral meniscectomies chondroplasty medial femoral condyle and patella Surgeon: Isa [employer] Dealer: Bradly berg assist Anesthesia: General Estimated blood loss: 5 cc Complications: None Operative indications: Patient has significant pain and swelling with any pivoting or twisting especially as well as to a lesser extent with walking and increased activity. MRI shows documented tear posterior horn the medial meniscus as well as some chondromalacia I went over with her that we can pote ntially undergo arthroscopic surgery to treat the mechanical aspects of the meniscus tear but I cannot undo any degenerative change and that would have to be treated in an ongoing fashion with symptomatic treatment. In addition there is possibility of continued pain infection nerve or blood vessel damage medical or other anesthetic complications among others all her questions were answered and he wishes to proceed with surgical evaluation and treatment Operative text: Patient was identified procedure verified patient placed in the supine position on the operating table. After adequate amounts of general anesthesia were administered the right lower extremity was prepped and draped in standard sterile fashion with a thigh tourniquet. After timeout was performed patient procedure identified and verified the right lower extremity was exsanguinated by Esmarch bandage tourniquet inflated to 300 mmHg a lateral portal was established medial portal established using spinal needle localization and the knee joint was systematically examined. A chondral defect in the trochlea not requiring debridement significant chondromalacia of the patella which was debrided back to stable tissue, no loose bodies noted in the gutters or suprapatellar pouch. Medial meniscus posterior horn was found to have a displaceable tear and was trimmed back to stable tissue with the arthroscopic punch and shaver. Likewise had a displaceable chondral flap tear of the medial femoral condyle which was trimmed back to stable tissue and was not full-thickness in nature. ACL was probed and found to be intact lateral meniscus showed free edge fraying which was trimmed back to stable tissue with the arthroscopic punch and shaver any cartilage fragments were removed and the joint was drained of arthroscopic fluid portals closed with nylon suture fat pad and portal areas were injected with half percent plain Marcaine sterile d ressings were applied patient was returned to recovery room stable condition having tolerated procedure well. Bradly schroeder assisted in patient positioning prepping draping positioning closure and dressings JOSEPH GUTIERREZ MD Dec 05, 2020 09:03
[2020-12-05] MEDS ORDERED: HYDROcodone/APAP 7.5/325MG 1 TAB TABLET ONE (09:09)
[2020-12-05] MEDS ORDERED: HYDROcodone/APAP 7.5/325MG 1 TAB TABLET PO ONE (09:15)
[2020-12-05 09:21] VITALS: BP 109/79
== END 2020-12-05 09:43 | disposition home or self-care (01) ==
LOC: SURG 06:45
PROVIDERS: ATTEND Orthopaedic Surgery
DX: S83.241A Other tear of medial meniscus, current injury, right knee, initial encounter (principal); S83.281A Other tear of lateral meniscus, current injury, right knee, initial encounter; M94.261 Chondromalacia, right knee; I10 Essential (primary) hypertension; E78.00 Pure hypercholesterolemia, unspecified; E66.9 Obesity, unspecified; M19.90 Unspecified osteoarthritis, unspecified site; F41.9 Anxiety disorder, unspecified; F32.9 Major depressive disorder, single episode, unspecified; Z90.710 Acquired absence of both cervix and uterus; Z98.51 Tubal ligation status; Z98.890 Other specified postprocedural states; Z79.899 Other long term (current) drug therapy; X58.XXXA Exposure to other specified factors, initial encounter; Y93.89 Activity, other specified; Y92.89 Other specified places as the place of occurrence of the external cause; Y99.8 Other external cause status
CPT/HCPCS: 29880; A4930; J0690; J0780; J1100; J2270; J2405; J2704; J3010

== ENCOUNTER → 2021-03-22 | Outpatient (CLI) | payer OTHER ==
[~2021-03-22] MED LIST changes: +HYDR-2763 PO
--- NOTE | 2021-03-22 14:01 | KCIC ---
EXAMINATION: Magnetic resonance imaging (MRI) of the lumbar spine without contrast 03/22/2021 12:35 P M HISTORY: Chronic low back pain painful to do activities for very long. TECHNIQUE: Multiplanar multi-weighted MRI of the lumbar spine was performed without intravenous contr ast using the standard lumbar spine protocol. Contrast information: None administered. COMPARISON: None available. FINDINGS: There is 2 mm retrolisthesis of L3 on L4. Vertebral bodies demonstrate normal signal intensity on all sequences. There are no compression fractures. The conus medullaris terminates at the level of L1. The distal spinal cord signal intensity is normal. Intervertebral disks have normal height and sign al intensity. There are no annular fissures identified. Right renal cyst measures 2.7 cm. The aorta is normal. Diffuse lumbar subcutaneous edema. There is a right sacral edema involving the right S2 v ertebral body. Linear T1 hypointensity identified in this region which may represent a sacral fractur e. L1-L2: The disc is normal in configuration. There is no facet arthropathy. There is no neuroforaminal stenosis. There is no spinal canal stenosis. L2-L3: The disc is normal in configuration. There is no facet arthropathy. There is no neuroforaminal stenosis. There is no spinal canal stenosis. L3-L4: Mild disc bulge. There is mild facet arthropathy. There is no neuroforaminal stenosis. There i s no spinal canal stenosis. L4-L5: The disc is normal in configuration. There is mild to moderate facet arthropathy. There is no neuroforaminal stenosis. There is no spinal canal stenosis. L5-S1: The disc is normal in configuration. There is moderate facet arthropathy. There is no neurofor aminal stenosis. There is no spinal canal stenosis. IMPRESSION: Mild degenerative changes of the lumbar spine as described in detail above. Suspect a right S1/S2 sacral fracture which is not well profiled on this examination. MRI sacrum or C T pelvis could be of benefit for further catheterization. FOR INTERNAL CODING PURPOSES Critical result: Findings discussed with Mr. Lorenzo at 03/22/2021 1:55 PM. RESULT CODE: (C) Electronically signed by: Jonelle Roberts MD (03/22/2021 1:59 PM) [facility]
== END ==
LOC: KCIC MRI 12:21
PROVIDERS: ATTEND Physician Assistant
DX: M47.26 Other spondylosis with radiculopathy, lumbar region (principal); M48.8X7 Other specified spondylopathies, lumbosacral region; M51.26 Other intervertebral disc displacement, lumbar region; N28.1 Cyst of kidney, acquired; R60.0 Localized edema; M43.16 Spondylolisthesis, lumbar region
CPT/HCPCS: 72148

== ENCOUNTER → 2021-03-26 | Outpatient (CLI) | payer OTHER ==
--- NOTE | 2021-03-26 09:26 | KCIC ---
EXAM: Pelvis CT without contrast. HISTORY: Sacral pain. TECHNIQUE: Computed tomographic images of the pelvis were obtained without contrast. *One or more of the following individualized dose reduction techniques were utilized for this examina tion: 1. Automated exposure control. 2. Adjustment of the mA and/or kV according to patient size. 3. Use of iterative reconstruction technique. COMPARISON: MRI dated 03/22/2021. FINDINGS: There is sclerosis involving the right sacrum due to a subacute healing nondisplaced insuff iciency fracture. There is also sclerosis involving the right greater than left iliac bones adjacent to the sacroiliac joints. There is a vacuum phenomenon involving the sacroiliac joints. There are few small benign bone islands. There is degenerative spurring and vacuum phenomenon involving the pubis symphysis. There is minimal marginal spurring involving the femoral heads. There is a tiny degenerati ve subchondral cyst involving the lateral left acetabulum. There is limited evaluation of the lower lumbar spine, demonstrating a disc bulge with severe facet a rthropathy at L4-L5 and a disc bulge with severe right and moderate left facet arthropathy at L5-S1. These findings are better characterized on the recent lumbar spine MRI. There is incidental distal co lonic diverticulosis. The uterus is absent. There is no lymphadenopathy. IMPRESSION: 1. Subacute healing nondisplaced insufficiency fracture of the right sacrum. 2. Severe sclerosis involving the right greater than left iliac bones adjacent to the sacroiliac join ts. 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 There are no secondary findings to suggest sacroi liitis. 3. Mild osteoarthritis involving both hips and degenerative change involving the pubis symphysis. 4. Degenerative change involving the lower lumbar spine, better characterized on the recent lumbar sp ine MRI. Electronically signed by: Sunita Alexis MD (03/26/2021 9:24 AM) [id number]
== END ==
LOC: KCIC CT 08:46
PROVIDERS: ATTEND Family Medicine
DX: S32.13 Zone III fracture of sacrum (principal); K57.30 Diverticulosis of large intestine without perforation or abscess without bleeding; M16.0 Bilateral primary osteoarthritis of hip; M47.817 Spondylosis without myelopathy or radiculopathy, lumbosacral region; X58.XXXS Exposure to other specified factors, sequela
CPT/HCPCS: 72192

== ENCOUNTER → 2021-03-28 | Outpatient (CLI) | payer OTHER ==
--- NOTE | 2021-03-28 09:32 | RAD ---
EXAM: Lumbar spine, 2 views. HISTORY: Pain. COMPARISON: None. FINDINGS: 2 views of the lumbar spine are obtained. There are 6 nonrib-bearing lumbar segments, a nor mal variant. 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 There is mild lumbar levo scoli osis. There is 2 mm grade 1 anterolisthesis of L6 on S1. There is mild multilevel endplate remodeling . There is a right greater than left facet arthropathy at L5-L6 and L6-S1. There are cholecystectomy clips. IMPRESSION: 1. Degenerative change primarily at the lower lumbar levels. 2. 6 nonrib-bearing vertebral segments, a normal variant. Electronically signed by: Sunita Alexis MD (03/28/2021 9:30 AM) [id number]
== END ==
LOC: RAD 08:50
PROVIDERS: ATTEND Family Medicine
DX: M47.817 Spondylosis without myelopathy or radiculopathy, lumbosacral region (principal); M43.17 Spondylolisthesis, lumbosacral region; M41.86 Other forms of scoliosis, lumbar region; Z90.49 Acquired absence of other specified parts of digestive tract
CPT/HCPCS: 72100

== ENCOUNTER → 2021-04-18 | Outpatient (CLI) | payer OTHER ==
[~2021-04-18] MED LIST changes: +HYDR-2761 PO
--- NOTE | 2021-04-18 13:06 | PDOC1 ---
INITIAL PAIN CONSULT DATE OF SERVICE: DOS: DATE: 04/18/21 TIME: 12:58 CHIEF COMPLAINT: Chief Complaint: Low back and bilateral lower extremity pain HISTORY OF PRESENT ILLNESS: 46-year-old female presents history of pain low back bilateral lower extremities for many years but worse over the past 6 months in the low back rating the bilateral lower extremities posterior gluteus posterior thigh posterior calves mostly in the back and thighs however patient reports also pain in both knees more on the right than the left but worse without specific injury or accident she has been doing physical therapy as well as water therapy recently which is helpful but only when she is in the water patient reports when she gets out the pain returned significantly she also had chiropractic treatment which has been very minimal and decreasing the pain reports the pain is constant sharp stabbing throbbing shooting radiating lower extremities and aching wakes her from sleep at least once a night generally side effect her bowel bladder control does affect her ability to walk she has a walker with her today and also uses a cane when she is at home patient uses hydrocodone as well also [id number]-[id number] anti- inflammatories always alleviates the pain very minimally patient reports her disability rating 0-10 10 being the worst is a 10 with family responsibilities recreation social behavior self-care 9 with social activity 9 with life support activities. Patient did have MRI scan lumbar spine dated March 22, 2021, showing right S1-S2 sacral fracture which is not well profiled with CT scan of lumbar spine and pelvis showing nonhealed nondisplaced insufficiency fracture of the right sacrum. Mild to moderate facet arthropathy from L3-L4 5 and L5-S1 as well. Patient reports no loss of motor function but significant fatigability of the lower extremities with walking and standing better with sitting or laying down as noted. Patient reports no bowel or bladder incontinence. PAST MEDICAL HISTORY: PMH: Hypertension, bronchitis, arthritis, obesity, depression, panic attacks PREVIOUS SURGERIES: Past Surgical Hx: , cholecystectomy, total abdominal hysterectomy, bilateral carpal tunnel repair, bilateral knee surgery CURRENT MEDICATIONS: Current Meds: Active Scripts Medications Dose Route/Sig Max Daily Dose Days Date Category Hydrocodone-Apap 5-325 (Hydrocodone Bit/Acetaminophen) 1 Tab Tablet 1 Tab PO PRN Q6HRS PRN 04/18/21 Reported Vitamin C (Ascorbic Acid) 500 Mg Capsule.er 250 Mg PO DAILY 07/06/20 Reported Alprazolam 2 Mg Tablet 2 Mg PO HS PRN 07/06/20 Reported Seroquel (Quetiapine Fumarate) 400 Mg Tablet 400 Mg PO HS 11/16/17 Reported Prozac (Fluoxetine Hcl) 40 Mg Capsule 1 Cap PO DAILY 11/16/17 Reported ALLERGIES; Allergies: Coded Allergies: ibuprofen (Unverified Allergy, Severe, Swelling of hands/throat, 12/05/20) 800mg caused reaction tramadol (Verified Allergy, Intermediate, Palpitations, 12/05/20) throat swells FAMILY HISTORY: Family Hx: Cancers SOCIAL HISTORY: Social Hx: Patient is nondrug alcohol does not use any illegal illicit or recreational drugs does smoke less than a pack a day and has for 26 years continues to smoke patient is but has 1 child living at home lives locally in [facility] REVIEW OF SYSTEMS: ROS: Positive for those items mentioned in history of present illness, all systems are reviewed, otherwise negative ,and are complete full and well-documented on patient's chart. PHYSICAL EXAM: VS: Blood pressure is 141/96 pulse 99 respiration 16, 98.3 F height is 5 foot 6 inches weight is 284 pounds PE: PHYSICAL EXAMINATION: GENERAL: The patient is awake, alert, oriented, appropriate, very pleasant in demeanor HEENT: Shows normocephalic, atraumatic. Extraocular movements are intact and symmetrical. Oral cavity: Mucous membranes moist and pink. Dentition is intact. NECK: Shows anterior throat supple without palpable lymphadenopathy noted. Swallow reflex symmetrical. CHEST: Shows normal on inspection. Breath sounds are clear bilaterally, distant and coarse but no rales or rhonchi. HEART: Shows S1, S2 clear. No murmurs auscultated. ABDOMEN: Soft, nontender, nondistended, obese. No palpable organomegaly is noted. No rebound or guarding demonstrated. BACK: Shows spine grossly in the midline. Normal-appearing cervical lordotic curvature. There is increased thoracic kyphosis, some flattening of the lumbar lordotic curvature. Lumbar paraspinous muscles show symmetrical on inspection, on palpation shows some moderate tenderness diffusely throughout the upper, middle and lower distribution of the paraspinous muscles bilaterally and also into the lower thoracic paraspinous musculature, firm and tender, but without specific trigger points, without radiation of pain. The patient has good rotational motion of the lumbar spine, both laterally as well as extension and flexion without significant difficulty. No tenderness over the spinous processes, sacrum or sacroiliac regions. EXTREMITIES: Lower extremities show deep tendon reflexes 1+ in the patellar and tendo calcaneus tendons. Motor exam is full on a scale of 5 with right dorsiflexion, extension, quadriceps and hamstring flexion and 4/5 on the left. Peripheral pulses are 1+ posterior tibial. No peripheral edema is noted bila terally. Lower extremities are warm and dry to touch, equal in color and appearance. Straight leg raise noted to be positive bilaterally approximate 40 degrees decreased with knee flexion. Gaenslen's and Avery's maneuvers are negative bilaterally. The patient is able to stand but needs help getting up from a seated position using her walker to hold onto walks with a shuffling gait and uses her walker to ambulate with significant dependency. SKIN: Shows warm and dry, good turgor. No edema. No sores, rashes or bruising throughout. IMPRESSION: Impression: 46-year-old female with long history of low back bilateral lower extremity pain worse over the past 6 months following an L5-S1 dermatomal distribution CT scan spine as well as pelvis as noted Hypertension Bronchitis Arthritis Obesity Depression Plan: Options were discussed with the patient including conservative management continued physical therapies and interventional techniques. Patient like to pursue interventional techniques that she has been performing pool therapy as well as multiple physical practic treatments without significant improvement and medication management has not been significantly helpful as well. We discussed a lumbar epidural steroid injection with a caudal approach using description as well as anatomical models to describe the procedure. Patient will wait for preauthorization with her insurance provider, once this is obtained letter return and plan on a caudal approach lumbar epidural steroid injection with fluoroscopic guidance. In the meantime, patient will continue with stretching strength exercises on her own as well as oral analgesics and anti-inflammatories as currently. REYMUNDO BREEN MD Apr 18, 2021 13:06
== END | disposition home or self-care (01) ==
LOC: PNCL 08:44
PROVIDERS: ATTEND Anesthesiology
DX: M54.50 Low back pain, unspecified (principal); M79.605 Pain in left leg; M79.604 Pain in right leg; I10 Essential (primary) hypertension; M19.90 Unspecified osteoarthritis, unspecified site; E66.9 Obesity, unspecified; F32.9 Major depressive disorder, single episode, unspecified; F41.9 Anxiety disorder, unspecified; E78.00 Pure hypercholesterolemia, unspecified; F17.210 Nicotine dependence, cigarettes, uncomplicated; Z98.51 Tubal ligation status; Z90.49 Acquired absence of other specified parts of digestive tract; Z90.710 Acquired absence of both cervix and uterus; Z98.890 Other specified postprocedural states; Z72.89 Other problems related to lifestyle; Z88.8 Allergy status to other drugs, medicaments and biological substances; Z79.899 Other long term (current) drug therapy
CPT/HCPCS: 99214; G0463

== ENCOUNTER → 2021-05-02 | Outpatient (CLI) | payer OTHER ==
[~2021-05-02] MED LIST changes: +IOHEXOL 180 MG/ML 10 ML VIAL. ONE; +methylPREDNISolone ACETATE 40 MG/ML VIAL. ONE; +methylPREDNISolone ACETATE 80 MG/ML VIAL. ONE
--- NOTE | 2021-05-02 09:36 | PDOC ---
Progress Note - Pain Clinic Date of Service: DOS: DATE: 05/02/21 TIME: 09:32 Diagnosis: Dx: Lumbar radiculopathy with lumbar degenerative disc disease Sacral fracture S1-2 History or Present Illness: HPI: 46-year-old female returns for follow-up complaining of pain low back and into the bilateral lower extremities right greater than left also some knee pain pain in the low back and in the sacrum itself as well patient reports some pain radiating now into the upper mid back also which is come up over the past week or so patient reports is a 9-10 on scale 10 is worst 9 on average 9 at its least is a 9 today patient ports aching sharp dull tight shooting constant severe unbearable in the posterior gluteus posterior thighs as well as the right knee was also has some significant tenderness patient did have knee scope last year and is wearing a brace on her knee currently patient reports the pain is waking her from sleep several times a night she will return to change positions patient reports she is taking naproxen as well as tizanidine which are not decreasing the pain significantly. Patient reports no bowel or bladder incontinence. Patient is using a walker and has it with her today for ambulation as well. Physical Exam: VS: Blood pressure is 140/91 pulse 114 respirations 18 temperature 98.1 F weight is 289 pounds PE: PHYSICAL EXAMINATION: GENERAL: The patient is awake, alert, oriented, appropriate, very pleasant in demeanor HEENT: Shows normocephalic, atraumatic. Extraocular movements are intact and symmetrical. Oral cavity: Mucous membranes moist and pink. Dentition is intact. NECK: Shows anterior throat supple without palpable lymphadenopathy noted. Swallow reflex symmetrical. CHEST: Shows normal on inspection. Breath sounds are clear bilaterally. HEART: Shows S1, S2 clear. No murmurs auscultated. ABDOMEN: Soft, nontender, nondistended. No palpable organomegaly is noted. BACK: Shows spine grossly in the midline. Normal-appearing cervical lordotic curvature. There is increased thoracic kyphosis, some flattening of the lumbar lordotic curvature. Lumbar paraspinous muscles show symmetrical on inspection, on palpation shows some moderate tenderness diffusely throughout the upper, middle and lower distribution of the paraspinous muscles, but without specific trigger points, without radiation of pain. The patient has good rotational motion of the lumbar spine, both laterally as well as extension and flexion without significant difficulty. EXTREMITIES: Lower extremities show deep tendon reflexes 1+ in the patellar and tendo calcaneus tendons. Motor exam is 4 on a scale of 5 with right dors iflexion, extension, quadriceps and hamstring flexion and 4/5 on the left. Peripheral pulses are 1+ posterior tibial. No peripheral edema is noted bilaterally. Lower extremities are warm and dry. SKIN: Shows warm and dry, good turgor. No edema. No sores, rashes or bruising throughout. Procedure: Procedure: Options were discussed with patient. Patient chart was reviewed as her current medication regimen updated current review of systems updated today as well. We will proceed with a caudal approach epidural steroid injection today with fluoroscopic guidance. Risks were discussed including but not limited to: Bleeding, infection, possibility of epidural hematoma and subsequent neurological compromise, dural puncture, headaches, spinal cord and/or nerve damage, side effects of steroid medication, and poor results regarding pain control. Patient understands and wished to proceed. Patient will return to the clinic in approximate 2 weeks for follow-up, was counseled as return appointment, activity level, and side effect to be aware of. Medication Injected: Med Injected: Procedure is lumbar epidural steroid injection under local anesthetic using sterile prep and drape at the caudal level using C-arm fluoroscopic guidance in both AP and lateral views medications injected is 120 mg Depo-Medrol +10mL preservative-free normal saline and 2 mL contrast- condition at discharge is stable patient tolerated procedure well had no complications. Condition at Discharge: Condition at Discharge: Condition at discharge stable, patient tolerated procedure well and had no complications. REYMUNDO BREEN MD May 02, 2021 09:36
--- NOTE | 2021-05-02 09:37 | PDOC4 ---
Procedure Note: ICD 10 Code: ICD 10 Code: M54.17 M51.87 Procedure Note: Patient was consented for caudal epidural steroid injection with fluoroscopy. Risks were discussed including but not limited to: Bleeding, infection, possibility of epidural hematoma and subsequent neurological compromise, dural puncture, headaches, spinal cord and/or nerve damage, side effects of steroid medication, and poor results regarding pain control. Patient understands and wished to proceed. Procedure is lumbar epidural steroid injection under local anesthetic using sterile prep and drape at the caudal level using C-arm fluoroscopic guidance in both AP and lateral views medications injected is 120 mg Depo-Medrol +10mL preservative-free normal saline and 2 mL contrast- condition at discharge is stable patient tolerated procedure well had no complications. REYMUNDO BREEN MD May 02, 2021 09:37
== END | disposition home or self-care (01) ==
LOC: PNCL 08:58
PROVIDERS: ATTEND Anesthesiology
DX: M51.16 Intervertebral disc disorders with radiculopathy, lumbar region (principal); I10 Essential (primary) hypertension; E78.00 Pure hypercholesterolemia, unspecified; E66.9 Obesity, unspecified; M19.90 Unspecified osteoarthritis, unspecified site; F41.9 Anxiety disorder, unspecified; F32.9 Major depressive disorder, single episode, unspecified; F17.210 Nicotine dependence, cigarettes, uncomplicated; Z90.710 Acquired absence of both cervix and uterus; Z90.49 Acquired absence of other specified parts of digestive tract; Z98.51 Tubal ligation status; Z98.890 Other specified postprocedural states; Z79.899 Other long term (current) drug therapy; Z72.89 Other problems related to lifestyle; Z88.8 Allergy status to other drugs, medicaments and biological substances
CPT/HCPCS: 62323; J1030; J1040; Q9965

== ENCOUNTER → 2021-05-16 | Outpatient (CLI) | payer OTHER ==
[~2021-05-16] MED LIST changes: -IOHEXOL 180 MG/ML 10 ML VIAL. ONE; -methylPREDNISolone ACETATE 40 MG/ML VIAL. ONE; -methylPREDNISolone ACETATE 80 MG/ML VIAL. ONE
--- NOTE | 2021-05-16 09:39 | PDOC ---
Progress Note - Pain Clinic Date of Service: DOS: DATE: 05/16/21 TIME: 09:35 Diagnosis: Dx: Lumbar radiculopathy lumbar central disc disease Sacral fracture S1-S2 Myofascial pain History or Present Illness: HPI: 46-year-old female returns for follow-up status post caudal approach epidural steroid injection x1. Patient reports only about 50% improvement initially patient reports pain returning in the low back and now is radiating to the right lower extremity much more significantly than it had previously patient reports it was just in the tailbone and low back and down the right leg in the posterior gluteus posterior thigh posterior calf is becoming much more painful with pain radiating into the lower leg patient reports is worse with walking standing changing positions better with sitting or laying down patient reports aching sharp dull tight shooting cramping stabbing can be severe and constant unb earable with weightbearing patient reports it is keeping her awake from sleep at night occasionally wakens her throughout the night sometimes 4-5 times with most nights least once patient reports no loss of motor function but significant fatigability with right lower extremity. Patient continues to do stretching strength exercises is enrolled in physical therapy currently and we will renew this for some increased myofascial release and stretching strengthening and massage therapies patient reports pain is a nine on scale ten at its least ten is worst ten on average is a ten today patient reports no loss of motor function continues to use massaging techniques at home as well as heat application and cold application which is only minimally decreasing the pain. Patient is also taking [id number] analgesics and anti-inflammatories as well alprazolam and tizanidine at night. Physical Exam: VS: Blood pressure is 131/107 pulse 103 respirations sixteen temperature is 98.3 F weight is 287 pounds PE: PHYSICAL EXAMINATION: GENERAL: The patient is awake, alert, oriented, appropriate, very pleasant in demeanor HEENT: Shows normocephalic, atraumatic. Extraocular movements are intact and symmetrical. Oral cavity: Mucous membranes moist and pink. Dentition is intact. NECK: Shows anterior throat supple without palpable lymphadenopathy noted. Swallow reflex symmetrical. CHEST: Shows normal on inspection. Breath sounds are clear bilaterally, no rales or rhonchi. HEART: Shows S1, S2 clear. No murmurs auscultated. ABDOMEN: Soft, nontender, nondistended, obese. No palpable organomegaly is noted. BACK: Shows spine grossly in the midline. Normal-appearing cervical lordotic curvature. There is increased thoracic kyphosis, some flattening of the lumbar lordotic curvature. Lumbar paraspinous muscles show symmetrical on inspection, on palpation shows some moderate tenderness diffusely throughout the upper, middle and lower distribution of the paraspinous muscles but without specific trigger points, without radiation of pain. The patient has good rotational motion of the lumbar spine, both laterally as well as extension and flexion without significant difficulty. EXTREMITIES: Lower extremities show deep tendon reflexes 1+ in the patellar and tendo calcaneus tendons. Motor exam is four on a scale of 5 with right dorsiflexion, extension, quadriceps and hamstring flexion and four/5 on the left. Peripheral pulses are 1+ posterior tibial. No peripheral edema is noted bilaterally. Lower extremities are warm and dry to touch, equal in color and appearance. Straight leg raise noted to be positive on the right at approximately 40 degrees, decreased with knee flexion left side is negative. SKIN: Shows warm and dry, good turgor. No edema. No sores, rashes or bruising throughout. Procedure: Procedure: Options were discussed with the patient. Patient chart was reviewed his report medication regimen updated current review of systems updated today as well. We will preauthorize patient for lumbar epidural steroid injection translaminar approach at the L5-S1 level as patient has clinical L5-S1 radiculopathy into the right lower extremity with positive leg raise on the right side. In the meanti me we will order physical therapy for patient's the neck and upper back and shoulders including cervical traction as well as massage and ultrasound treatments. Patient continue with low back physical therapy and massage techniques as well as oral analgesics in the meantime as well as anti- inflammatories as currently. Medication Injected: Med Injected: None Condition at Discharge: Condition at Discharge: Condition at discharge is stable. REYMUNDO BREEN MD May 16, 2021 09:39
== END | disposition home or self-care (01) ==
LOC: PNCL 08:56
PROVIDERS: ATTEND Anesthesiology
DX: M79.18 Myalgia, other site (principal); M54.16 Radiculopathy, lumbar region; S32.10XA Unspecified fracture of sacrum, initial encounter for closed fracture; I10 Essential (primary) hypertension; E78.00 Pure hypercholesterolemia, unspecified; E66.9 Obesity, unspecified; M19.90 Unspecified osteoarthritis, unspecified site; F41.9 Anxiety disorder, unspecified; F32.9 Major depressive disorder, single episode, unspecified; Z90.49 Acquired absence of other specified parts of digestive tract; Z98.890 Other specified postprocedural states; Z79.899 Other long term (current) drug therapy; X58.XXXA Exposure to other specified factors, initial encounter; Y93.89 Activity, other specified; Y92.89 Other specified places as the place of occurrence of the external cause; Y99.8 Other external cause status
CPT/HCPCS: 99212; G0463

== ENCOUNTER → 2021-06-14 | Outpatient (CLI) | payer OTHER ==
[~2021-06-14] MED LIST changes: +ALBU2.5V8 IH; +BUPR1FIL7 SL; +IOHEXOL 180 MG/ML 10 ML VIAL. ONE; +methylPREDNISolone ACETATE 80 MG/ML VIAL. ONE
--- NOTE | 2021-06-14 11:23 | PDOC4 ---
Procedure Note: ICD 10 Code: ICD 10 Code: L5 4.17 M51.87 Procedure Note: Patient was consented for lumbar epidural steroid injection with fluoroscopic guidance. Risks were discussed including but not limited to: Bleeding, infection, possibility of epidural hematoma and subsequent neurological compromise, dural puncture, headaches, spinal cord and/or nerve damage, side effects of steroid medication, and poor results regarding pain control. Patient understands and wished to proceed. Procedure is lumbar epidural steroid injection under local anesthetic using sterile prep and drape at the L5-S1 level using C-arm fluoroscopic guidance in both AP and lateral views medications injected is 120 mg Depo-Medrol +10mL preservative-free normal saline and 2 mL contrast- condition at discharge is stable patient tolerated procedure well had no complications. REYMUNDO BREEN MD Jun 14, 2021 11:23
--- NOTE | 2021-06-14 11:23 | PDOC ---
Progress Note - Pain Clinic Date of Service: DOS: DATE: 06/14/21 TIME: 11:18 Diagnosis: Dx: Lumbar radiculopathy with lumbar degenerative disc disease Right sacroiliitis Sacral fracture S1 and S2 Myofascial pain History or Present Illness: HPI: 46-year-old female returns for follow-up after caudal epidural steroid injection May 02, 2021 patient reports about 50% improvement with pain returning in the low back and right lower extremity posterior gluteus posterior thigh posterior calf patient reports is tingling and aching on the right side of the lateral calf as well with some increased pain since her last visit in the posterior "hip." Patient reports is a 10 on scale 10 is worst 9 on average 9 at its least is a 9 today patient ports aching sharp dull tight shooting in the right lower extremity stabbing cramping can be constant unbearable worse with walking standing change positions or prolonged sitting was significantly increased pain on the right side in the posterior aspect of the low back and hip. Patient reports this is fairly new as it was generally across the low back and into the right leg but now much more tender on the right posterior aspect of the hip. Patient is seeing a neurosurgeon recently who is not recommending surgery at this time but is recommending more conservative pain management techniques. Patient reports no bowel or bladder incontinence no loss of motor function but significant fatigability of the right lower extremity with all activity. Physical Exam: VS: Blood pressure is 144/101 pulse 103 respirations 16 temperature is 98.2 F weight is 288 pounds. PE: PHYSICAL EXAMINATION: GENERAL: The patient is awake, alert, oriented, appropriate, [facility] [place] by her . HEENT: Shows normocephalic, atraumatic. Extraocular movements are intact and symmetrical. Oral cavity: Mucous membranes moist and pink. Dentition is intact. NECK: Shows anterior throat supple without palpable lymphadenopathy noted. Swallow reflex symmetrical. CHEST: Shows normal on inspection. Breath sounds are clear bilaterally, distant but no rales or rhonchi. HEART: Shows S1, S2 clear. No murmurs auscultated. ABDOMEN: Soft, nontender, nondistended, obese. No palpable organomegaly is noted. BACK: Shows spine grossly in the midline. Normal-appearing cervical lordotic curvature. There is increased thoracic kyphosis, some flattening of the lumbar lordotic curvature. Lumbar paraspinous muscles show symmetrical on inspection, on palpation shows some moderate tenderness diffusely throughout the upper, middle and lower distribution of the paraspinous muscles, but without specific trigger points, without radiation of pain. The patient has good rotational motion of the lumbar spine, both laterally as well as extension and flexion without significant difficulty. Patient has significant tenderness over this posterior superior iliac spine on the right with mild tenderness on the left and significant tenderness in the superior aspect of the right sacroiliac joint with direct palpation. No radiation is demonstrated bilaterally. EXTREMITIES: Lower extremities show deep tendon reflexes 1+ in the patellar and tendo calcaneus tendons. Motor exam is 4 on a scale of 5 with right dorsiflexion, extension, quadriceps and hamstring flexion and 4/5 on the left. Peripheral pulses are 1 posterior tibial. No peripheral edema is noted bilaterally. Lower extremities are warm and dry to touch, equal in color and appearance. Patient has positive Gaenslen's maneuver on the right side only with posterior displacement of the right hip and lateral rotation. SKIN: Shows warm and dry, good turgor. No edema. No sores, rashes or bruising throughout. Procedure: Procedure: Options were discussed with patient. Patient's old chart was reviewed as her current medication regimen updated current review of systems updated today as well. We will proceed with a lumbar epidural steroid injection today with fluoroscopic guidance. Risks were discussed including but not limited to: Bleeding, infection, possibility of epidural hematoma and subsequent neurological compromise, dural puncture, headaches, spinal cord and/or nerve damage, side effects of steroid medication, and poor results regarding pain control. Patient understands and wished to proceed. Patient will return to clinic in approximately 2 weeks for follow-up, was counseled as to return appointment, activity level, and side effects to be aware of. Patient with significant tenderness over the right sacroiliac joint and posterior superior iliac spine with positive Gaenslen sign on the right we will preauthorize patient for sacroiliac joint injection with fluoroscopic guidance upon return. Medication Injected: Med Injected: Procedure is lumbar epidural steroid injection under local anesthetic using sterile prep and drape at the L5-S1 level using C-arm fluoroscopic guidance in both AP and lateral views medications injected is 120 mg Depo-Medrol +10mL preservative-free normal saline and 2 mL contrast- condition at discharge is stable patient tolerated procedure well had no complications. Condition at Discharge: Condition at Discharge: Condition at discharge is stable, patient tolerated the procedure well and had no complications. REYMUNDO BREEN MD Jun 14, 2021 11:23
== END | disposition home or self-care (01) ==
LOC: PNCL 10:00
PROVIDERS: ATTEND Anesthesiology
DX: M51.16 Intervertebral disc disorders with radiculopathy, lumbar region (principal); M79.18 Myalgia, other site; M46.1 Sacroiliitis, not elsewhere classified; I10 Essential (primary) hypertension; E78.00 Pure hypercholesterolemia, unspecified; E66.9 Obesity, unspecified; M19.90 Unspecified osteoarthritis, unspecified site; F41.9 Anxiety disorder, unspecified; F32.9 Major depressive disorder, single episode, unspecified; F17.210 Nicotine dependence, cigarettes, uncomplicated; Z90.49 Acquired absence of other specified parts of digestive tract; Z98.51 Tubal ligation status; Z98.890 Other specified postprocedural states; Z72.89 Other problems related to lifestyle; Z79.899 Other long term (current) drug therapy; Z88.8 Allergy status to other drugs, medicaments and biological substances
CPT/HCPCS: 62323; J1040; Q9965

== ENCOUNTER → 2021-06-28 | Outpatient (CLI) | payer OTHER ==
[~2021-06-28] MED LIST changes: +BUPIVACAINE MPF 0.25% 10 ML VIAL. ONE; +DEXAMETHASONE PRES.FREE 10 MG/ML VIAL. ONE; -methylPREDNISolone ACETATE 80 MG/ML VIAL. ONE
--- NOTE | 2021-06-28 10:48 | PDOC ---
Progress Note - Pain Clinic Date of Service: DOS: DATE: 06/28/21 TIME: 10:44 Diagnosis: Dx: Right sacroiliitis Lumbar radiculopathy lumbar degenerative disease Sacral fracture S1-S2 Myofascial pain History or Present Illness: HPI: 46-year-old female returns for follow-up with complaints of a right sided posterior "hip pain" patient reports significant pain with change of positions standing from seated position sitting for prolonged periods greater than 20 to 30 minutes as well as with walking patient reports it wakes her from sleep about every 6 hours she can usually reposition or take pain medication which helps patient reports that she is having significant pain in the low back as well she is just finished physical therapy which she feels was helpful but only moderately patient reports her pain is a 9-10 on scale 10 is worst 9 on average 9 at its least is a 9 today. Patient describes aching and sharp tight and stabbing and constant in the back with shooting pain across the back which can be unbearable at times with activity. Patient reports she still doing stretching strength exercises at home from the physical therapy sessions. Patient reports no loss of motor function no bowel or bladder incontinence. Physical Exam: VS: Blood pressure is 142/99 pulse 105 respirations 18 temperature 98.6 F weight is 290 pounds. PE: PHYSICAL EXAMINATION: GENERAL: The patient is awake, alert, oriented, appropriate, very pleasant in demeanor HEENT: Shows normocephalic, atraumatic. Extraocular movements are intact and symmetrical. Oral cavity: Mucous membranes moist and pink. Dentition is intact. NECK: Shows anterior throat supple without palpable lymphadenopathy noted. Swallow reflex symmetrical. CHEST: Shows normal on inspection. Breath sounds are clear bilaterally, distant but no rales rhonchi or wheezes auscultated. HEART: Shows S1, S2 clear. No murmurs auscultated. ABDOMEN: Soft, nontender, nondistended. No palpable organomegaly is noted. BACK: Shows spine grossly in the midline. Normal-appearing cervical lordotic curvature. There is slightly increased thoracic kyphosis, some minor flattening of the lumbar lordotic curvature. Lumbar paraspinous muscles show symmetrical on inspection, on palpation shows some moderate tenderness diffusely throughout the upper, middle and lower distribution of the paraspinous muscles, but without specific trigger points, without radiation of pain. The patient has good rotational motion of the lumbar spine, both laterally as well as extension and flexion without significant difficulty. Patient has positive Gaenslen's maneuver on the right, also positive Avery's maneuver on the right but not the left and positive sacroiliac compression test on the right side but not the left. EXTREMITIES: Lower extremities show deep tendon reflexes one in the patellar and tendo calcaneus tendons. Motor exam is 4 on a scale of 5 with right dorsiflexion, extension, quadriceps and hamstring flexion and 4/5 on the left. Peripheral pulses are 1+ posterior tibial. No peripheral edema is noted bilaterally. Lower extremities are warm and dry. SKIN: Shows warm and dry, good turgor. No edema. No sores, rashes or bruising throughout. Procedure: Procedure: Options were discussed with the patient. Patient's chart was reviewed as her current medication regimen updated current review of systems updated today as well. We will proceed with a right-sided sacroiliac joint injection today with fluoroscopic guidance. Risk were discussed including but not limited to bleeding infection possibility of intravascular injection and sequelae spread of local anesthetic numbness side effects of steroid medications post fluoroscopy and poor results regarding pain control. Patient understands wished to proceed. Patient return to clinic in approximately 2 weeks for follow-up, was counseled as to return appointment, activity level, and side effects to be aware of. Medication Injected: Med Injected: Under sterile prep and drape using C-arm fluoroscopic guidance, right sacroiliac joint injected using 3 cc 0.25% bupivacaine + 10 mg Decadron +1.5 cc contrast, after negative aspiration. Condition at discharge is stable, patient tolerated procedure well and had no complications. Condition at Discharge: Condition at Discharge: Condition at discharge is stable, patient tolerated the procedure well and had no complications. REYMUNDO BREEN MD Jun 28, 2021 10:48
--- NOTE | 2021-06-28 10:50 | PDOC4 ---
Procedure Note: ICD 10 Code: ICD 10 Code: M4 6.1 Procedure Note: Patient was consented for right sacroiliac joint injection with fluoroscopic guidance. Risks are discussed including but not limited to bleeding infection possibility of intravascular injection sequelae spread local anesthetic and numbness side effects of steroid medication exposure to fluoroscopy and portals regarding pain control. Patient understands wishes to proceed. Under sterile prep and drape using C-arm fluoroscopic guidance, right sacroiliac joint injected using 3 cc 0.25% bupivacaine + 10 mg Decadron +1.5 cc contrast, after negative aspiration. Condition at discharge is stable, patient tolerated procedure well and had no complications. REYMUNDO BREEN MD Jun 28, 2021 10:50
--- NOTE | 2021-06-28 10:52 | FMN ---
PT PROBLEMS Addendum for visit June 28, 2021 Prior patient is discharged discussed medication regimen and patient's arthritic complaints. After medications were reviewed we we will start new prescription medication of diclofenac 50 mg p.o. twice daily. Patient was given instruction as well as side effects beware of with the medication. Patient to follow-up in approximately 2 weeks as scheduled. REYMUNDO BREEN MD Jun 28, 2021 10:52
== END | disposition home or self-care (01) ==
LOC: PNCL 09:55
PROVIDERS: ATTEND Anesthesiology
DX: M46.1 Sacroiliitis, not elsewhere classified (principal); M51.16 Intervertebral disc disorders with radiculopathy, lumbar region; M79.18 Myalgia, other site; S32.19XA Other fracture of sacrum, initial encounter for closed fracture; I10 Essential (primary) hypertension; E78.00 Pure hypercholesterolemia, unspecified; E66.9 Obesity, unspecified; F41.9 Anxiety disorder, unspecified; F32.9 Major depressive disorder, single episode, unspecified; M19.90 Unspecified osteoarthritis, unspecified site; F17.210 Nicotine dependence, cigarettes, uncomplicated; Z72.89 Other problems related to lifestyle; Z88.8 Allergy status to other drugs, medicaments and biological substances; Z90.710 Acquired absence of both cervix and uterus; Z90.49 Acquired absence of other specified parts of digestive tract; Z98.51 Tubal ligation status; Z98.890 Other specified postprocedural states; X58.XXXA Exposure to other specified factors, initial encounter; Y93.89 Activity, other specified; Y92.89 Other specified places as the place of occurrence of the external cause; Y99.8 Other external cause status
CPT/HCPCS: G0260; J1100; J3490; Q9965; 27096

== ENCOUNTER → 2021-07-12 | Outpatient (CLI) | payer OTHER ==
[~2021-07-12] MED LIST changes: -BUPIVACAINE MPF 0.25% 10 ML VIAL. ONE; -DEXAMETHASONE PRES.FREE 10 MG/ML VIAL. ONE; -IOHEXOL 180 MG/ML 10 ML VIAL. ONE
--- NOTE | 2021-07-12 11:31 | PDOC ---
Progress Note - Pain Clinic Date of Service: DOS: DATE: 07/12/21 TIME: 11:25 Diagnosis: Dx: Right sacroiliitis Lumbar radiculopathy lumbar degenerative disease Sacral fracture S1-S2 Myofascial pain History or Present Illness: HPI: 46-year-old female returns for follow-up status post right sacroiliac joint injection x1. Patient reports about 75% improvement initially but over the first week or so the pain began to return fairly significant initially to do much better with distance walking doing household activities work activities travel with greater ease and comfort sleeping better now the pain is waking her from sleep at night every 3-4 hours in the right posterior hip without significant radiation but some pain in the right lateral lower leg on occasion the knee on the right side patient reports he is unsure if these are related but they seem to be more prominent concerning patient reports her pain is a 9 on scale 10 at all times average worst and least is a 9 today patient reports that sharp sticking tight shooting into the hip itself cramping and stabbing in the back of the hip as well patient reports no loss of motor function no bowel or bladder incontinence. Patient has been doing stretching strength exercises with the right hip and lower extremity but is not decreasing the pain significantly. Patient reports has had significant headaches however over the past 2 weeks or so causing nausea and vomiting as recently as yesterday. We discussed this in further detail and patient is blood pressure has been elevated and on review has had diastolics in the high 90s to low 100s and is 164/110 pressure today. We discussed the importance of this and getting this controlled as she was previously on lisinopril but was taken off of this by her primary care physician and we discussed the importance of getting this under control and she will visit with her primary care physician regarding this as well. I instructed patient to keep a tally of blood pressure when she is at rest at home and she has a blood pressure machine at home that her insurance provider for her to do this 3 times a day for the next week to get a good idea of her blood pressures throughout the day. Patient will comply and discussed this with her primary care physician as well as on her next visit. Physical Exam: VS: Blood pressure is 160/110 pulse 91 respirations 20 temperature 98.1 return weight is 289 pounds. PE: PHYSICAL EXAMINATION: GENERAL: The patient is awake, alert, oriented, appropriate, very pleasant in demeanor HEENT: Shows normocephalic, atraumatic. Extraocular movements are intact and symmetrical. Oral cavity: Mucous membranes moist and pink. Dentition is intact. NECK: Shows anterior throat supple without palpable lymphadenopathy noted. Swallow reflex symmetrical. CHEST: Shows normal on inspection. Breath sounds are clear bilaterally, distant no rales rhonchi wheezes auscultated. HEART: Shows S1, S2 clear. No murmurs auscultated. ABDOMEN: Soft, nontender, nondistended. No palpable organomegaly is noted. BACK: Shows spine grossly in the midline. Normal-appearing cervical lordotic curvature. There is increased thoracic kyphosis, some flattening of the lumbar lordotic curvature. Lumbar paraspinous muscles show symmetrical on inspection, on palpation shows some moderate tenderness diffusely throughout the upper, middle and lower distribution of the paraspinous muscles, but without specific trigger points, without radiation of pain. The patient has good rotational motion of the lumbar spine, both laterally as well as extension and flexion without significant difficulty. Patient has significant tenderness over the right posterior superior iliac spine as well as the sacroiliac joint itself with very mild tenderness on the left side with palpation. Patient demonstrates no radiation with palpation on the right side however. EXTREMITIES: Lower extremities show deep tendon reflexes 1 in the patellar and tendo calcaneus tendons. Motor exam is 4 on a scale of 5 with right dorsiflexion, extension, quadriceps and hamstring flexion and 4/5 on the left. Peripheral pulses are 1+ posterior tibial. No peripheral edema is noted bilate rally. Patient has positive Gaenslen sign on the right as well as a positive Avery's sign with external rotation and posterior displacement of the right hip with significant pain in the sacroiliac distribution as well as positive sacroiliac compression test on the right side but not the left. Lower extremities are warm and dry to touch, equal in color and appearance. SKIN: Shows warm and dry, good turgor. No edema. No sores, rashes or bruising throughout. Procedure: Procedure: Options discussed with the patient. Patient chart was viewed as her current medication regimen updated current review of systems updated today as well. We will preauthorize patient for right sacroiliac joint injection with fluoroscopic guidance. Patient will return to clinic after preauthorization we will plan on fluoroscopic guidance with right sacroiliac joint injection at that time. In the meantime, patient will continue with stretching and strengthening exercise as well as oral analgesics and anti-inflammatories as currently. Medication Injected: Med Injected: None Condition at Discharge: Condition at Discharge: Condition at discharge is stable. REYMUNDO BREEN MD Jul 12, 2021 11:30
== END | disposition home or self-care (01) ==
LOC: PNCL 10:35
PROVIDERS: ATTEND Anesthesiology
DX: M51.16 Intervertebral disc disorders with radiculopathy, lumbar region (principal); M46.1 Sacroiliitis, not elsewhere classified; M79.18 Myalgia, other site; I10 Essential (primary) hypertension; E78.00 Pure hypercholesterolemia, unspecified; E66.9 Obesity, unspecified; F41.9 Anxiety disorder, unspecified; F32.9 Major depressive disorder, single episode, unspecified; Z90.710 Acquired absence of both cervix and uterus; Z98.51 Tubal ligation status; Z98.890 Other specified postprocedural states; Z90.49 Acquired absence of other specified parts of digestive tract; Z79.899 Other long term (current) drug therapy; Z88.8 Allergy status to other drugs, medicaments and biological substances
CPT/HCPCS: 99212; G0463

== ENCOUNTER → 2021-08-13 | Outpatient (CLI) | payer OTHER ==
[~2021-08-13] MED LIST changes: +BUPIVACAINE MPF 0.25% 10 ML VIAL. ONE; +DEXAMETHASONE PRES.FREE 10 MG/ML VIAL. ONE; +IOHEXOL 180 MG/ML 10 ML VIAL. ONE; +LISI10TA16 PO; +METF500T16 PO
--- NOTE | 2021-08-13 12:12 | PDOC ---
Progress Note - Pain Clinic Date of Service: DOS: DATE: 08/13/21 TIME: 12:08 Diagnosis: Dx: Lumbar radiculopathy with lumbar degenerative disc disease Right sacroiliitis Sacral fracture S1, S2 Myofascial pain History or Present Illness: HPI: 46-year-old female returns for follow-up status post right sacroiliac joint injection June 28, 2021 patient did very well with pain returning down the right posterior hip and gluteus with increased activity walking standing change positions patient reports that occasionally radiates in the right leg on the lateral calf but usually just in the right posterior hip itself patient rates as a 10 on scale 10 is worst average and a 9 at its least is a 10 today patient ports aching and sharp dull can be shooting in the hip stabbing constant severe and unbearable with walking standing weightbearing she is using a four-point walker to ambulate and is wearing a brace on her right knee she has some significant knee pain she is seeing orthopedics for later this week. Patient reports no bowel or bladder incontinence no loss of motor function but significant fatigability especially with the right leg. Patient reports the p ain is waking her from sleep at night with once or twice but feels better with laying down. Patient reports some ice does not awaken her from sleep at all but most nights it does twice. Patient reports no bowel or bladder incontinence no loss of motor function but significant fatigability of the right leg. Physical Exam: VS: Blood pressure is 145/96 pulse 78 respirations 18 temperature is 98.3 F height 5 feet 6 inches weight is 279 pounds. PE: PHYSICAL EXAMINATION: GENERAL: The patient is awake, alert, oriented, appropriate, very pleasant in demeanor HEENT: Shows normocephalic, atraumatic. Extraocular movements are intact and symmetrical. Oral cavity: Mucous membranes moist and pink. Dentition is intact. NECK: Shows anterior throat supple without palpable lymphadenopathy noted. Swallow reflex symmetrical. CHEST: Shows normal on inspection. Breath sounds are clear bilaterally, no rales or rhonchi. HEART: Shows S1, S2 clear. No murmurs auscultated. ABDOMEN: Soft, nontender, nondistended. No palpable organomegaly is noted. BACK: Shows spine grossly in the midline. Normal-appearing cervical lordotic curvature. There is slightly increased thoracic kyphosis, some minor flattening of the lumbar lordotic curvature. Lumbar paraspinous muscles show symmetrical on inspection, on palpation shows some moderate tenderness diffusely throughout the upper, middle and lower distribution of the paraspinous muscles without specific trigger points, without radiation of pain. The patient has good rotational motion of the lumbar spine, both laterally as well as extension and flexion without significant difficulty. Patient significant tenderness over the right posterior iliac spine as well as the superior aspect of the right sacroiliac joint, left side is nontender. EXTREMITIES: Lower extremities show deep tendon reflexes 1+ in the patellar and tendo calcaneus tendons. Motor exam is 4 on a scale of 5 with right dorsiflexion, extension, quadriceps and hamstring flexion and 4/5 on the left. Peripheral pulses are 1+ posterior tibial. No peripheral edema is noted bilaterally. Lower extremities are warm and dry. SKIN: Shows warm and dry, good turgor. No edema. No sores, rashes or bruising throughout. Procedure: Procedure: Options were discussed with patient. Patient's chart was reviewed as her current medication regimen updated current review of systems updated today as well. We will proceed with a right sacroiliac joint injection today with fluoroscopic guidance. Risk were discussed including not limited to bleeding infection possibility of intravascular injection sequelae spread local anesthetic numbness side effects of steroid medication and poor results regarding pain control. Patient understands wished to proceed. Patient return to clinic in approximately 2 weeks for follow-up, was counseled as return appointment, activity level, and side effect to be aware of. Medication Injected: Med Injected: Under sterile prep and drape using C-arm fluoroscopic guidance, right sacroiliac joint injected using 3 cc 0.25% bupivacaine 15 mg dexamethasone +2 cc contrast. Condition at discharge is stable, patient tolerated procedure well and had no complications. Condition at Discharge: Condition at Discharge: Condition at discharge stable, patient tolerated the procedure well and had no complications. REYMUNDO BREEN MD Aug 13, 2021 12:12
--- NOTE | 2021-08-13 12:13 | PDOC4 ---
Procedure Note: ICD 10 Code: ICD 10 Code: M4 6.1 Procedure Note: Patient was consented for right sacroiliac joint injection with fluoroscopic guidance. Risks were discussed including but not limited to bleeding infection possibility of intravascular injection sequelae spread local anesthetic numbness side effects of steroid medication and poor results regarding pain control. Patient understands wished to proceed. Under sterile prep and drape using C-arm fluoroscopic guidance, right sacroiliac joint injected using 3 cc 0.25% bupivacaine 15 mg dexamethasone +2 cc contrast. Condition at discharge is stable, patient tolerated procedure well and had no complications. REYMUNDO BREEN MD Aug 13, 2021 12:13
== END | disposition home or self-care (01) ==
LOC: PNCL 10:26
PROVIDERS: ATTEND Anesthesiology
DX: M46.1 Sacroiliitis, not elsewhere classified (principal); M51.16 Intervertebral disc disorders with radiculopathy, lumbar region; M79.18 Myalgia, other site; I10 Essential (primary) hypertension; E78.00 Pure hypercholesterolemia, unspecified; E66.9 Obesity, unspecified; M19.90 Unspecified osteoarthritis, unspecified site; F41.9 Anxiety disorder, unspecified; F32.9 Major depressive disorder, single episode, unspecified; F17.210 Nicotine dependence, cigarettes, uncomplicated; Z90.710 Acquired absence of both cervix and uterus; Z90.49 Acquired absence of other specified parts of digestive tract; Z98.51 Tubal ligation status; Z98.890 Other specified postprocedural states; Z79.84 Long term (current) use of oral hypoglycemic drugs; Z79.899 Other long term (current) drug therapy; Z72.89 Other problems related to lifestyle; Z88.8 Allergy status to other drugs, medicaments and biological substances
CPT/HCPCS: G0260; J1100; J3490; Q9965; 27096